=== PATIENT | male | born 1990 | race Caucasian/White ===

== ENCOUNTER 2019-12-02 18:05 | Outpatient (CLI) | payer SELFPAY ==
[2019-12-02 18:18] LABS: Basophils # 0.1 10^3/uL (0.0-0.1); Basophils % 0.9 %; Eosinophils % 0.5 %; Hemoglobin 14.6 g/dL (11.7-16.6); Lymphocytes # 3.1 10^3/uL (0.8-4.8); Lymphocytes % 40.3 %; Mean Corpuscular HGB Conc 33.2 g/dL (30.0-36.0); Mean Corpuscular Hemoglobin 32.2 pg (28.0-34.0); Mean Corpuscular Volume 96.9 fL (80-94); Mean Platelet Volume 10.5 fL (7.4-10.4); Monocytes # 0.4 10^3/uL (0.2-0.9); Monocytes % 5.5 %; Neutrophils # 4.1 10^3/uL (1.8-7.7); Neutrophils % 52.5 %; Nucleated Red Blood Cells % 0 %; Platelet Count 275 10^3/cmm (130-400); Red Blood Count 4.54 10^6/uL (4.1-5.3); Red Cell Distribution Width 11.8 % (12.1-15.1); White Blood Count 7.8 10^3/uL (4.0-10.0)
[2019-12-02 18:35] LABS: Alanine Aminotransferase 45 U/L (0-41); Albumin Level 4.9 g/dL (3.5-5.2); Alkaline Phosphatase 78 IU/L (40-130); Anion Gap 18.8 (5-19); Aspartate Amino Transferase 37 U/L (0-40); Blood Urea Nitrogen 10 mg/dL (6-20); Calcium 9.6 mg/dL (8.5-10.5); Carbon Dioxide 23 mmol/L (22-29); Chloride 99 mmol/L (98-107); Chol HDL Ratio 2.29 mg/dL (1.0-5.00); Cholesterol 142 mg/dL (0-200); Globulin 2.5 g/dL (1.3-4.6); Glomerular Filtration Rate 112.8 mL/min (90-130); Glucose 264 mg/dL (65-115); HDL Cholesterol 62 mg/dL (60-100); LDL Cholesterol Calculated 62 mg/dL (50-129); Osmolality Calculated 289 mOsm/kg (285-295); Potassium 3.8 mmol/L (3.5-5.1); Sodium 137 mmol/L (136-145); Total Bilirubin 0.4 mg/dL (0.15-1.2); Total Protein 7.4 g/dL (6.6-8.7); Triglycerides 91 mg/dL (0-150)
[2019-12-02 18:46] LABS: Estmated Average Glucose 223; Hemoglobin A1C 9.4 % (4.0-6.0)
== END 2019-12-02 18:06 | disposition home or self-care (01) ==
LOC: LAB 18:06
PROVIDERS: Family Provider Family Medicine; PCP Family Medicine; Visit Provider General Practice
DX: E11.9 Type 2 diabetes mellitus without complications (principal)
CPT/HCPCS: 80053; 80061; 83036; 85025

== ENCOUNTER → 2022-05-29 11:15 | Outpatient (BNVA) | payer BC, MEDICAID, SELFPAY | PROVIDERS: Family Provider Family Medicine; PCP Nurse Practitioner; Visit Provider Internal Medicine | DX: E10.42 Type 1 diabetes mellitus with diabetic polyneuropathy (principal); E78.2 Mixed hyperlipidemia | CPT/HCPCS: 80053; 80061; 82044; 83036 ==

== ENCOUNTER → 2022-08-26 14:35 | Outpatient (BNVA) | payer BC, MEDICAID, SELFPAY | PROVIDERS: Family Provider Family Medicine; PCP Nurse Practitioner; Visit Provider Student in an Organized Health Care Education/Training Program | DX: M65.321 Trigger finger, right index finger (principal); M65.331 Trigger finger, right middle finger | CPT/HCPCS: 73130 ==

== ENCOUNTER 2022-09-17 05:23 | Day surgery (SDC) | payer BC, MEDICAID, SELFPAY ==
[2022-09-16 11:22] VITALS: BMI 23.6
[2022-09-17] VITALS (8 sets, daily range): BP systolic 100–117; BP diastolic 56–74; PULSE 61–73; RESP 12–18; TEMP 36.1–36.4; O2SAT 97–99
[2022-09-17 06:06] LABS: Glucose Point of Care 174 mg/dL (70-110)
[2022-09-17] MEDS: ketorolac 30 mg/mL INJ IVP (06:06)
[2022-09-17] MEDS: acetaminophen 1,000 MG/100 ML PIGGYBACK 400 MG IV (06:06)
[2022-09-17] MEDS: sodium chloride 0.9% 1,000 ML 30 ML IV (06:07)
--- NOTE | 2022-09-17 06:36 | ANES.PREANE2 ---
Pre-Anesthetic Assessment Height/Weight: Height 1.73 m Weight 70.307 kg Temp Pulse Resp BP Pulse Ox O2 Del Method 97.6 F 69 18 117/74 98 09/17/22 05:56 09/17/22 05:56 09/17/22 05:56 09/17/22 05:56 09/17/22 05:56 09/17/22 05:58 Preop Diagnosis: Right index finger trigger, right middle finger trigger Operation Date: 09/17/22 07:00 Proposed Procedures p right index and middle trigger finger release 85513, M65.321,? M65.331(Right) - Kike Nance, Familial anesthetic complications: None Was Beta Lexii taken within 24 hours: N/A Was Clonidine taken within 24 hours: N/A Last intake: Intake Last Liquid Date 09/16/22 Last Liquid Time 23:00 Last Solid Date 09/16/22 Last Solid Time 19:00 Social Alcohol (1 pint whiskey a day) and Tobacco 1 and medical marijuana pack(s) per day 10 pack years Exam alert, oriented x 3, clear to auscultation bilaterally and regular rate & rhythm Airway Submandibular: within normal limits Cervical ROM: within normal limits Mallampati: Class II Dentition: chipped and loose Comments: Comments: Poor dentition History/ROS No significant history except as noted and No significant complaints Pulmonary Insomnia CV/HEM None reported None reported Hepatic None reported GI Gastroesophageal Reflux Disease (None this morning) Metabolic Diabetes Mellitus and Hyperlipidemia [facility] [place] None reported Neuropsych Anxiety, Depression and Neuropathy Anesthetic Plan ASA status: 2 Anesthesia: Anesthesia Evaluation and MAC Risk of > 500 ml blood loss (7ml/kg in children): No Medications/Allergies Home Medications Medication Instructions Recorded Confirmed Last Taken Type blood sugar diagnostic (True 05/09/22 09/10/22 Unknown History Metrix Glucose Test Strip) insulin detemir U-100 100 unit/mL 30 unit SUBCUT DAILY 05/09/22 09/17/22 09/16/22 History (3 mL) subcutaneous pen (Levemir FlexTouch U-100 Insulin) blood-glucose meter,continuous #1 ea 05/23/22 09/10/22 Unknown Rx (Dexcom G6 Senior Dynamics Crm Developer) insulin aspart U-100 100 unit/mL 10 unit (0.1 mL) SUBCUT TID #15 mL 05/23/22 09/17/2209/16/23 Rx (3 mL) subcutaneous pen (Novolog FlexPen U-100 Insulin aspart) blood-glucose transmitter (Dexcom #1 ea 08/23/22 09/10/22 Unknown Rx G6 Transmitter device) blood-glucose sensor (Dexcom G6 #9 ea 09/10/22 09/10/22 Unknown Rx Sensor device) rosuvastatin 20 mg tablet 20 mg PO DAILY #30 tabs 09/10/22 09/17/22 09/16/22 Rx Allergies Allergy/AdvReac Type Severity Reaction Status Date / Time No Known Allergies Allergy Verified 09/16/22 11:21 Current Medications Generic Name Dose Route Start Last Admin Trade Name Freq PRN Reason Stop Dose Admin Sodium Chloride 1,000 mls @ 30 mls/hr 09/17/22 05:45 09/17/22 06:07 Sodium Chloride 0.9% IV 09/18/22 05:44 30 mls/hr .Q24H VENTURA Administration PFSH Anesthesia Medical History Marijuana use Polyneuropathy due to type 1 diabetes mellitus Type 1 diabetes mellitus Family History Other Hypertension Social History Additional social history: marijuana use Data Anesthesia Cardiac Studies: No Data to Display
--- NOTE | 2022-09-17 06:53 | W.PM.OPSUD ---
Surgery/Procedure H&P Update DATE OF PROCEDURE: September 17, 2022 DATE H&P PERFORMED: 08/26/22 CHANGES TO PREVIOUS DOCUMENTATION: None PREOP DIAGNOSIS: Right index finger trigger, right middle finger trigger PRIMARY INDICATION FOR PROCEDURE: Right index finger trigger, right middle finger trigger PLANNED PROCEDURE: Operation Date: 09/17/22 07:00 Proposed Procedures p right index and middle trigger finger release 08350, M65.321,? M65.331(Right) - Kike George, DO
[2022-09-17] MEDS: ceFAZolin 2,000 MG in sodium chloride 0.9% (plus) 50 ML 100 MG IV (06:56)
--- NOTE | 2022-09-17 07:43 | PM.OP2 ---
Brief Operative Note Date of procedure: 09/17/22 Pre-op diagnosis: Right middle finger trigger, right index finger trigger Post-op diagnosis: same Procedure Done: Right middle finger trigger release Right index finger trigger release Surgeon: Kike George Estimated blood loss (mL): 4 Complications: None Post-op Plan: Patient taken to PACU in stable condition recovering well. Given appropriate discharge structure as well as pain medication postoperatively we will follow-up with us in the orthopedic office in 2 weeks. Patient understands agrees with current plan. All questions answered. Condition: stable Disposition: same day Coding Level of Care Code Acute Code for Lorraineg Dhruv
--- NOTE | 2022-09-17 07:44 | PM.PACU ---
PACU note Narrative: Patient taken to PACU in stable condition recovering well patient received local anesthetic to the index and middle finger still has decreased sensation. Patient is able to wiggle fingers without any issues no mechanical triggering. Fingertips warm well-perfused brisk capillary refill less than 2 seconds. Exam: awake Disposition: discharged
--- NOTE | 2022-09-17 07:44 | PM.OP ---
Operative Report Date of procedure: September 17, 2022 Pre-op diagnosis: Preop Diagnosis Right index finger trigger, right middle finger trigger Post-op diagnosis: Same Procedure done: Right index finger trigger release Right middle finger trigger release Surgeon: Kike George DO Anesthesia: MAC (Local) Estimated blood loss: For mL 9 minutes IV fluids: See anesthesia record Complications: None Findings: See operative report narrative Condition: stable Disposition: same day Brief History: Patient is a 32-year-old male who has right index finger and right middle finger trigger findings consistent with preoperative diagnosis. We talked about treatment options and outpatient setting nonoperative and operative invention. At this point time through shared decision making elected to proceed with right middle finger and right index finger trigger release. He understands risk benefits complication alternatives surgical treatment options. Understanding risk of surgery he agrees to proceed with surgical intervention. All questions answered. Procedure: Patient seen evaluated in the preoperative holding area. Consent was reviewed and signed with patient. Correct extremity and digits were marked. Patient was then seen eval by anesthesia department once cleared for surgery taken back to the operative suite. He was placed in supine position all bony prominences well-padded patient was properly secured to the bed. Armboard applied to the right upper extremity. Nonsterile tourniquet applied to the right upper arm. Patient then underwent anesthesia per the anesthesia department. Patient's right upper extremity was then prepped and draped in standard orthopedic fashion. Final timeout performed. Patient received appropriate preoperative antibiotics. Local anesthetic was then injected under sterile aseptic technique and flexor tendon sheath digital block of the index and middle finger. Once appropriately anesthetized Esmarch tourniquet was used to exsanguinate the right upper extremity and tourniquet was insufflated 250 mmHg. Standard oblique incisions were made over the index and middle finger first my attention was turned towards the middle finger the oblique incision followed the distal palmar crease. Sharp scalpel incision was made only through skin. I then switched to Littler dissection scissors spreading longitudinally in the planes of the neurovascular bundles on both the radial and ulnar sides. I then utilized Kasdan retractors to protect the neurovascular bundles and then identified the flexor tendon and the A1 heber. I then identified the most proximal portion of the A1 heber and utilize dissection scissors to release the A1 heber to its entirety distally with care to protect neurovascular bundles throughout the procedure. I then utilized a rag nail retractor to pull the tendons out of the incision no triggering was noted and the tendons appeared healthy with no evidence of tearing. Next this was then thoroughly irrigated and a wet Ray-Belkis was then applied then attention was turned towards the right index finger. I then dissected through the standard oblique incision with Littler dissection scissors care to spread longitudinally along the planes of the neurovascular bundle and directly in plane of the flexor tendon sheath. Once down the flexor tendon sheath I utilized Kasdan retractors to protect the neurovascular bundles both radially and ulnarly. Once fully protected I then visualized the A1 heber and utilized dissection scissors identified the proximal portion of the A1 heber and then under direct visualization with loupe magnification released the A1 heber up to the A2 heber. I then pulled the tendons out with a rag nail which tendons were healthy and there was no recurrence and triggering. I took the patient's fingers through range of motion no triggering was noted. Then thoroughly irrigated the incision site Patient was then awakened from anesthesia for a trial of making a fist to assess for any triggering. When asked to make a fist and extend he had no evidence of mechanical triggering and patient confirmed there was no residual triggering left and the right index and right middle finger. He had full range of motion and function. Tourniquet deflated hemostasis satisfactory with electrocautery. The wounds were then thoroughly irrigated. Patient's incisions were then closed with interrupted nylon suture. Incisions were then dressed with Xeroform 4 x 4's fluffs and Kerlix and an Jeremías wrap. Patient then awakened from anesthesia and taken back in stable condition Disposition: Patient taken PACU in stable condition recovering well dressings on in place clean dry and intact. We will see appropriate discharge instruction as well as pain medication postoperatively. We will follow-up with me in the office in 2 weeks. Understand that any questions or concerns and contact the office
--- NOTE | 2022-09-17 16:22 | ANE.PACU2 ---
Inpatient post-anesthesia follow up: Airway intact: Yes Vital signs: Temperature 97.1 F Pulse Rate 62 Respiratory Rate 18 Blood Pressure 101/61 Pulse Oximetry 98 Oxygen Delivery Me thod Room Air Oxygen Flow Rate Fraction of Inspir ed Oxygen Hydration adequate: Yes Nausea and vomiting: No Pain level: 2 Mental status: Baseline
== END 2022-09-17 08:52 | disposition home or self-care (01) ==
PROVIDERS: PCP Nurse Practitioner; Visit Provider Student in an Organized Health Care Education/Training Program
PROC: (CPT 26055; principal; 2022-09-17 07:00)
DX: M65.321 Trigger finger, right index finger (principal); M65.331 Trigger finger, right middle finger; K21.9 Gastro-esophageal reflux disease without esophagitis; E78.5 Hyperlipidemia, unspecified; F41.9 Anxiety disorder, unspecified; F32.A Depression, unspecified; E10.40 Type 1 diabetes mellitus with diabetic neuropathy, unspecified; Z79.4 Long term (current) use of insulin
CPT/HCPCS: 26055 ×2; 36416; 82962; J0131; J0690; J1885; J2250; J2405; J2704; J2795; J3010; J3490; J7030

== ENCOUNTER 2022-11-21 11:43 | Emergency (ER) | payer BC, MEDICAID, SELFPAY ==
[2022-11-21 11:59] VITALS: BMI 23.1
[2022-11-21 12:01] VITALS: BP 127/86; PULSE 79; RESP 18; TEMP 36.7; O2SAT 96
--- NOTE | 2022-11-21 12:08 | W.ED.SKABFB ---
HPI - Skin/Abscess/Foreign Bdy General: Chief complaint: Skin/Abscess/Foreign Body Stated complaint: Swollen Face and Dental Pain Time Seen by Provider: 11/21/22 12:08 History of Present Illness: Patient is a 32-year-old male who comes to the ED with dental pain. Patient saw his dentist yesterday and he was placed on clindamycin and told he has an abscessed tooth and is scheduled to have his tooth removed next week. This morning he woke up and he was having swelling to left side of mouth, left cheek and left periorbital region. Past medical history of type 1 diabetes. Associated symptoms: Deny chills, fever(s), nausea or vomiting Review of Systems Const: Denies: fever(s), chills or fatigue Eyes: Denies: change in vision or eye discomfort ENMT: Reports: dental pain; Denies: throat pain, odynophagia, nasal discharge or nasal congestion Card: Denies: chest pain, palpitations, edema, swelling of feet/ankles, dyspnea on exertion or orthopnea Resp: Denies: dyspnea, productive cough or non-productive cough GI: Denies: abdominal pain, nausea, vomiting, diarrhea, constipation or hematochezia : Denies: flank pain, difficulty urinating, dysuria or hematuria Musc: Denies: neck pain, back pain or extremity swelling Skin/Breast: Denies: rash or new lesions Neuro: Denies: headache(s), numbness in extremities or weakness in extremities PFS ED PFSH: Medical History Marijuana use Polyneuropathy due to type 1 diabetes mellitus Type 1 diabetes mellitus Family History Other Hypertension Social History Additional social history: marijuana use Physical Exam Const: COMMON NORMALS: patient oriented x3 HENMT: COMMON NORMALS: normocephalic HEAD & SCALP: normocephalic FACE & SINUS: edema on the left periorbital and maxilla MOUTH: Normal oral and palatal mucosa present TEETH & GINGIVA: Yes abnormal tooth and associated gingiva, Yes caries and Yes poor dentition THROAT: posterior oropharynx normal and uvula midline Neck/C-Spine: COMMON NORMALS: supple GENERAL: Yes normal visual inspection Resp: COMMON NORMALS: normal respiratory effort, No retractions, No use of accessory muscles and clear to auscultation bilaterally AUSCULTATION: clear to auscultation bilaterally Cardio: COMMON NORMALS: regular rate, regular rhythm, S1 normal heart sound present, S2 normal heart sound present, No gallops present (Cardio), No clicks present (Cardio), No murmurs present (Cardio) and Peripheral pulses 2+ throughout RATE: regular rate RHYTHM: regular rhythm HEART SOUNDS: S1 normal heart sound present and S2 normal heart sound present PERIPHERAL PULSES: Peripheral pulses 2+ throughout GI: COMMON NORMALS: Normal to inspection, nondistended, normoactive bowel sounds present, Soft to palpation, non-tender and no masses PALPATION: Yes Soft to palpation : COMMON NORMALS: Yes no CVA tenderness BLADDER/KIDNEY EXAM: Yes no CVA tenderness Back/Pelvis: COMMON NORMALS: no CVA tenderness Extremity: COMMON NORMALS: normal to inspection Neuro: COMMON NORMALS: patient oriented x3 GAIT: Yes Normal gait present Skin: GENERAL SKIN EXAM: dry skin Course Vital Signs: Vital signs: Vital Signs Temperature 98.0 F 11/21/22 12:01 Pulse Rate 79 11/21/22 12:01 Respiratory Rate 18 11/21/22 12:01 Blood Pressure 127/86 11/21/22 12:01 Pulse Oximetry 96 11/21/22 12:01 Oxygen Delivery Me thod Room Air 11/21/22 12:01 MDM - Skin/Abscess/Foreign Bdy Medicial Decision Making Patient is a 32-year-old male who comes to the ED with dental pain. Patient saw his dentist yesterday and he was placed on clindamycin and told he has an abscessed tooth and is scheduled to have his tooth removed next week. This morning he woke up and he was having swelling to left side of mouth, left cheek and left periorbital region. Past medical history of type 1 diabetes. Vitals are stable. Patient appears nontoxic in no acute distress. He has poor dentition and left maxilla and left periorbital edema. Patient was diagnosed with dental abscess and he was given a shot of Rocephin and pain med here in the ED. He was stable for discharge home and sent home with a prescription for ibuprofen 800 mg and told to continue taking his previously prescribed antibiotic. Follow-up with dentist at his scheduled appointment next week. Patient understood and agreed with plan. Discharge Plan Discharge Patient Disposition: Home Clinical Impression: Dental abscess Condition: Stable Prescriptions: New ibuprofen 800 mg tablet 800 mg PO Q8H PRN (Reason: pain) Qty: 20 0RF No Action Levemir FlexTouch U-100 Insuln 100 unit/mL (3 mL) insulin pen 30 unit SUBCUT DAILY (DME) True Metrix Glucose Test Strip Strip See Rx Instructions .Route Rx Instructions: As directed (DME) Dexcom G6 Technical Specialist Cytogenetics Misc See Rx Instructions .Route Qty: 1 0RF Rx Instructions: As directed insulin aspart U-100 [Novolog FlexPen U-100 Insulin] 100 unit/mL (3 mL) insulin pen 10 unit SUBCUT TID Qty: 15 3RF (DME) Dexcom G6 Sensor Device See Rx Instructions .Route Qty: 9 3RF Rx Instructions: As directed rosuvastatin 20 mg tablet 20 mg PO DAILY Qty: 30 2RF Rx Instructions: 1 tablet daily (DME) Dexcom G6 Transmitter Device See Rx Instructions .Route Qty: 1 3RF Rx Instructions: As directed Discharge Orders: Discharge ED (Routine); Ordered 11/21/22 Ordered By: Maurizio George Referrals: Morris Bentley FNP [Primary Care Provider] - Discharge Diet: Regular Discharge Activity: Resume usual activity Patient Instructions: Dental Abscess (ED) Activity Restrictions/Additional Instructions: Follow-up with dentist at your scheduled appointment next week. Take medications as prescribed. Return to the ER or your medical provider if condition worsens. Please read and understand discharge instructions. Thank you for choosing [facility] for your healthcare needs today. Please realize this is an emergency room and that we are providing you with a medical screening exam and this may not be complete and all inclusive of all the testing and or work up that you may need to determine your ailment or severity of your illness. It is very important that you follow up as instructed or that you return to the Emergency Department should you have concerns or if your condition changes or worsens in any way. Coding Level of Care Code ED Furnace Process Plant Operator for Miya Bartlett
[2022-11-21] MEDS: cefTRIAXone 1,000 MG in water for injection-sterile 2.1 ML 2.1 MG IM (12:39)
[2022-11-21] MEDS: HYDROcodone-acetaminophen 7.5-325 mg Tablet 1 TAB PO (12:40)
== END 2022-11-21 12:57 | disposition home or self-care (01) ==
PROVIDERS: Emergency Provider Physician Assistant; PCP Nurse Practitioner
DX: K04.7 Periapical abscess without sinus (principal); Z79.4 Long term (current) use of insulin; E10.9 Type 1 diabetes mellitus without complications
CPT/HCPCS: 96372; 99284; J0696

== ENCOUNTER → 2023-07-01 11:17 | Outpatient (BNVA) | payer BC, MEDICAID, SELFPAY | PROVIDERS: PCP Nurse Practitioner; Visit Provider Internal Medicine | DX: E78.2 Mixed hyperlipidemia (principal); E10.42 Type 1 diabetes mellitus with diabetic polyneuropathy | CPT/HCPCS: 36415; 80053; 80061; 82044; 83036 ==

== ENCOUNTER → 2023-09-19 10:23 | Outpatient (BNVA) | payer BC, MEDICAID, SELFPAY | PROVIDERS: PCP Nurse Practitioner; Visit Provider Physician Assistant | DX: M79.642 Pain in left hand (principal); M65.322 Trigger finger, left index finger | CPT/HCPCS: 73130 ==

== ENCOUNTER 2023-10-29 09:07 | Day surgery (SDC) | payer BC, MEDICAID, SELFPAY ==
[2023-10-29 09:19] VITALS: BP 129/76; PULSE 73; RESP 16; TEMP 36.3; O2SAT 98
[2023-10-29] MEDS: sodium chloride 0.9% 1,000 ML 30 ML IV (09:27)
[2023-10-29] MEDS: acetaminophen 1,000 MG/100 ML PIGGYBACK 400 MG IV (09:32)
[2023-10-29] MEDS: ketorolac 30 mg/mL INJ IVP (09:37)
[2023-10-29] MEDS: scopolamine 1.5 Patch 1 PATCH TRANSDERMA (09:37)
--- NOTE | 2023-10-29 09:38 | P.ANESASSM_ITS ---
Pre-Anesthetic Assessment Height/Weight: Height 1.73 m Weight 68.492 kg Temp Pulse Resp BP Pulse Ox O2 Del Method 97.4 F L 73 16 129/76 98 Room Air 10/29/23 09:19 10/29/23 09:19 10/29/23 09:19 10/29/23 09:19 10/29/23 09:19 10/29/23 09:19 Operation Date: 10/29/23 10:30 Proposed Procedures p Trigger Finger Release/ Left index finger(Left) - Kike Mackinac, DO Familial anesthetic complications: None Was Beta Lexii taken within 24 hours: N/A Was Clonidine taken within 24 hours: N/A Last intake: Intake Last Liquid Date 10/28/23 Last Liquid Time 00:00 Last Solid Date 10/28/23 Last Solid Time 20:00 Social Alcohol (heavy use) and Tobacco Marijuana use Exam alert, oriented x 3, clear to auscultation bilaterally and regular rate & rhythm Airway Mallampati: Class II Dentition: chipped, loose and other (poor dentition) CV/HEM Hypertension Metabolic Diabetes Mellitus Anesthetic Plan ASA status: 3 Anesthesia: MAC Risk of > 500 ml blood loss (7ml/kg in children): No Medications/Allergies Home Medications Medication Instructions Recorded Confirmed Last Taken Type blood sugar diagnostic (True 05/09/22 10/02/23 Unknown History Metrix Glucose Test Strip) blood-glucose meter,continuous #1 ea 05/23/22 10/02/23 Unknown Rx (Dexcom G6 Senior Qa Automation Engineer) ibuprofen 800 mg tablet 800 mg PO Q8H PRN pain #20 tabs 11/21/22 10/29/23 10/28/23 Rx blood-glucose sensor (Dexcom G6 #9 ea 04/18/23 10/02/23 Unknown Rx Sensor device) blood-glucose transmitter (Dexcom #1 ea 04/18/23 10/02/23 Unknown Rx G6 Transmitter device) pen needle, diabetic 31 gauge x #1,200 ea 07/01/23 10/02/23 Unknown History 11/05 (TechLITE Pen Needle) rosuvastatin 20 mg tablet 20 mg PO DAILY #30 tabs 07/01/23 10/29/23 10/27/23 Rx pen needle, diabetic 32 gauge x #100 ea 07/17/23 10/02/23 Unknown Rx (TechLITE Pen Needle) insulin aspart U-100 100 unit/mL 10 unit (0.1 mL) SUBCUT TID 60 09/29/23 10/29/23 10/28/23 Rx (3 mL) subcutaneous pen (Novolog days #30 mL FlexPen U-100 Insulin aspart) insulin detemir U-100 100 unit/mL 30 unit (0.3 mL) SUBCUT DAILY 60 09/29/23 10/28/23 10/28/23 Rx (3 mL) subcutaneous pen days #20 mL Allergies Allergy/AdvReac Type Severity Reaction Status Date / Time No Known Allergies Allergy Verified 10/28/23 13:25 [facility] Anesthesia Medical History Polyneuropathy due to type 1 diabetes mellitus Marijuana use Type 1 diabetes mellitus Family History Other Hypertension Social History Additional social history: marijuana use Data Anesthesia Cardiac Studies: No Data to Display
--- NOTE | 2023-10-29 09:54 | P.HP_ITS ---
Same Day Surgery H&P Indication for Procedure/HPI DATE OF PROCEDURE: October 29, 2023 CHIEF COMPLAINT/INDICATIONFOR SURGICAL PROCEDURE: Left index finger trigger PREOP DIAGNOSIS: Left index finger trigger PLANNED PROCEDURE: Operation Date: 10/29/23 10:30 Proposed Procedures p Trigger Finger Release/ Left index finger(Left) - Kike George DO Medications/Allergies* Home Medications Medication Instructions Recorded Confirmed Type blood sugar diagnostic (True 05/09/22 10/02/23 History Metrix Glucose Test Strip) pen needle, diabetic 31 gauge x #1,200 ea 07/01/23 10/02/23 History 5/16 (TechLITE Pen Needle) Allergies/Adverse Reactions 3 Allergy/AdvReac Type Severity Reaction Status Date / Time No Known Allergies Allergy Verified 10/28/23 13:25 Current Medications: Generic Name Dose Route Start Last Admin Trade Name Freq PRN Reason Stop Dose Admin Sodium Chloride 1,000 mls @ 30 mls/hr 10/29/23 09:15 10/29/23 09:27 Sodium Chloride 0.9% IV 10/30/23 09:14 30 mls/hr .Q24H VENTURA Administration Pertinent History/Comorbid Conditions* Medical History (Updated 09/19/23 @ 11:45 by DUY Agudelo) Polyneuropathy due to type 1 diabetes mellitus Marijuana use Type 1 diabetes mellitus Family History (Updated 05/14/22 @ 13:46 by Ceci Freeman MD) Hypertension Social History Additional social history: marijuana use Pertinent Exam Findings alert, oriented x 3, operative site marked and procedure specific exam findings Patient has tenderness to palpation over the left hand A1 heber. Refer to full office note in detail orthopedic examination on 09/19/2023: Left hand?index finger?limited range of motion due to pain. Severe tenderness at A1 heber. Mechanical locking and catching with flexion of index finger. Fingers are warm well-perfused. Sensation hand intact Recommendations Surgery/Procedure today Other Plans: Plan to proceed to the OR today for left index finger trigger release. He understands the ins and outs procedure risk benefits complication alternatives surgery through shared decision make elects proceed with surgical intervention. All questions answered at this time. Coding Level of Care Code Acute Code for Chg Fwd
[2023-10-29] MEDS: ceFAZolin 2,000 MG in sodium chloride 0.9% (plus) 50 ML 100 MG IV (10:02)
[2023-10-29] MEDS: BUPivacaine 0.25% INJ 30 mL INJECTION (10:10)
[2023-10-29] MEDS: ROPivacaine 0.5% SDV 30 mL 150 MG INJECTION (10:10)
[2023-10-29 10:23] LABS: Glucose Point of Care 190 mg/dL (70-110)
--- NOTE | 2023-10-29 10:38 | P.OP_ITS ---
Operative Report Date of procedure: October 29, 2023 Surgeon: Kike George DO Modern Languages Professor: Maurizio George PA-C: PA was necessary for assistance in this case with hand positioning to execute the procedure, retraction and protection of neurovascular structures as well as to assist with wound closure and dressing application. Procedure: Preoperative diagnosis: Left index finger trigger post-op diagnosis: Same Procedure done: Left Index finger?trigger?release Surgeon: Kike George DO Estimated blood loss: 2cc Tourniquet time 5mins Complications: None Condition: stable Disposition: same day Brief History: Patient's been seen and worked up in the outpatient setting and findings consistent with preoperative diagnosis of Left Index finger?trigger.? He is fail ed conservative treatment and would like to proceed with surgical intervention as she has had success with this in the past. We talked about treatment options nonoperative versus operative intervention.? ?Patient understands the risk benefits complication alternatives of surgical nonsurgical treatment options.? Understanding his risks with surgery he elects proceed with surgical intervention.? Consent obtained in the office.? Here today to proceed with surgical intervention.? All questions answered. Procedure: Patient was seen and evaluated in the preoperative holding area.? Consent was reviewed and signed with patient.? Seen evaluated by Anesthesia Department.? Once cleared for surgery was brought back to the operative suite.? Placed in supine position on the OR table all bony prominences well-padded patient properly secured to the bed.? Patient's Left arm was then placed to the armboard.? A nonsterile tourniquet applied to the Left upper arm.? Patient's Left upper extremity was then prepped and draped in standard orthopedic fashion.? Final timeout performed.? Patient received appropriate preoperative antibiotics. Esmarch tourniquet was used exsanguinate the Left upper extremity tourniquet insufflated to 250 mmHg. Under sterile aseptic technique local digital block was performed to the Left Index finger.? Once appropriately anesthetized a standard oblique incision was made centering over the A1 heber following patient's flexor crease.? Sharp scalpel incision was made only through skin and then switched to Littler dissection scissors and spread longitudinally directly over the flexor tendon sheath.? I then mobilized both radially and ulnarly and Kasdan retractors were used and placed by my assistant operations manager to protect neurovascular bundle.? Next I visualized the A1 heber and this was incised with a scalpel.? I then switched to dissection scissors and?released the A1 heber both proximally as well as distally to its entirety.? Significant tendon sheath fluid was noted consistent with inflammation.? Mild fraying/irritation of the flexor tendons noted but no tear.? At this point I utilized a rag nail and pulled the tendons FDS and FDP out of the incision and no?triggering was noted.? I then had anesthesia wake up the patient and patient was able to actively flex and extend with no?triggering.? This point thorough irrigation was performed.? Tourniquet deflat ed hemostasis satisfactory with bipolar.? I then subsequently closed the incision with interrupted nylon suture.? Xeroform 4 x 4's, Kerlix and an Jeremías wrap was applied for a bulky soft dressing.? Patient was then subsequently awakened from anesthesia and taken to PACU in stable condition tolerated procedure without issues. Disposition: Patient taken back in stable condition recovering well.? Patient will receive appropriate discharge instruction as well as pain medication postoperatively.? Patient to follow-up with me in the office in 2 weeks for repeat evaluation and incision check.? Patient understands that any questions or concerns and contact the office.? All questions answered.
--- NOTE | 2023-10-29 10:43 | W.PM.BPON ---
Date of Procedure: [10/29/2023] Surgeon: [Dr. George DO] Box Lining Machine Feeder(s): [Maurizio George PA-C] Procedure(s) performed: [Left Index finger?trigger?release] Findings of the procedure(s): [Left index trigger finger] Estimated blood loss: [2 mL] Specimen(s) removed: [N/A] Post-operative diagnosis: [Left index trigger finger]
[2023-10-29 10:44] VITALS: BP 103/57; PULSE 75; RESP 18; TEMP 36.1; O2SAT 97
--- NOTE | 2023-10-29 10:46 | PM.PACU ---
PACU note Narrative: Patient is a 33-year-old male just underwent a left index finger trigger release. Patient transferred to PACU in stable condition. Pain is well controlled. Dressing on hand is dry and in place. Patient's fingers are warm and well-perfused. Patient can wiggle fingers. normal cap refill under 2 seconds. Patient has normal elbow range of motion. Sensation to hand intact Exam: awake Disposition: discharged
[2023-10-29 10:49] VITALS: BP 101/76; PULSE 83; RESP 18; O2SAT 98
[2023-10-29 10:54] VITALS: BP 101/65; PULSE 73; RESP 18; TEMP 36.2; O2SAT 98
[2023-10-29 10:59] VITALS: BP 106/66; PULSE 70; RESP 18; TEMP 36.2; O2SAT 98
[2023-10-29 11:14] VITALS: BP 108/62; PULSE 54; RESP 18; O2SAT 99
--- NOTE | 2023-10-29 11:30 | ANE.PACU2 ---
Inpatient post-anesthesia follow up: Airway intact: Yes Vital signs: Temperature 97.1 F Pulse Rate 54 Respiratory Rate 18 Blood Pressure 108/62 Pulse Oximetry 99 Oxygen Delivery Me thod Room Air Oxygen Flow Rate Fraction of Inspir ed Oxygen Hydration adequate: Yes Nausea and vomiting: No Pain level: 1 Mental status: Baseline
== END 2023-10-29 11:30 | disposition home or self-care (01) ==
PROVIDERS: PCP Nurse Practitioner; Visit Provider Student in an Organized Health Care Education/Training Program
PROC: (CPT 26055; principal; 2023-10-29 10:20)
DX: M65.322 Trigger finger, left index finger (principal)
CPT/HCPCS: 26055; 36416; 82962; J0131; J0690; J1885; J2704; J2795; J3010; J3490; J7030

== ENCOUNTER 2024-02-18 20:49 | Emergency (ER) | payer BC, MEDICAID, SELFPAY ==
[2024-02-18 21:15] VITALS: BP 132/71; PULSE 122; RESP 18; TEMP 36.7; O2SAT 96; BMI 23.6
--- NOTE | 2024-02-18 21:22 | XRR_ITS ---
PROCEDURE INFORMATION: Exam: XR Left Tibia and Fibula Exam date and time: 02/18/2024 9:30 PM Age: 33 years old Clinical indication: Injury or trauma; Fall; Other: Pain; Additional info: Injury. Fell through couch today, L tib fib pain since w small anterior laceration TECHNIQUE: Imaging protocol: Radiologic exam of the left tibia and fibula. Views: 2 views. COMPARISON: US soft tissue/extremity [id number] 05/23/2017 12:58 PM FINDINGS: Bones/joints: Normal. Soft tissues: Normal. No visible laceration and no radiopaque foreign body XR/XR tibia fibula LT 2V [id number] IMPRESSION: No acute findings.
--- NOTE | 2024-02-18 21:47 | ED_ITS ---
HPI - Extremity Injury (Lower) 2 General: Chief Complaint: Extremity Injury, Lower Stated Complaint: cantu injury Time Seen by Provider: 02/18/24 21:14 Source: patient Mode of arrival: ambulatory Limitations: no limitations History of Present Illness: Patient is a 33-year-old male who presents to ED today with a complaint of an injury to his left cantu that he sustained just prior to arrival after he states he accidentally fell from a couch while moving. He is ambulatory here on the extremity with a mild limp. Abrasion sustained to the anterior aspect of the left cantu. He has no other injuries or complaints at this time. Tetanus is up-to-date. MD complaint: leg injury Onset (ago): hour(s) Place: home Severity: moderate Relieving factors: immobilization Exacerbating factors: weight bearing Context: fall and direct blow Associated symptoms: Reports no associated symptoms Other symptoms: none Related Data Home Medications Medication Instructions Recorded Confirmed blood sugar diagnostic (True 05/09/22 02/18/24 Metrix Glucose Test Strip) pen needle, diabetic 31 gauge x #1,200 ea 07/01/23 02/18/24 5/16 (TechLITE Pen Needle) Previous Rx's Medication Instructions Recorded blood-glucose meter,continuous #1 ea 05/23/22 (Dexcom G6 Dispensing Operator) blood-glucose sensor (Dexcom G6 #9 ea 04/18/23 Sensor device) blood-glucose transmitter (Dexcom #1 ea 04/18/23 G6 Transmitter device) rosuvastatin 20 mg tablet 20 mg PO DAILY #30 tabs 07/01/23 insulin aspart U-100 100 unit/mL 10 unit (0.1 mL) SUBCUT TID 60 09/29/23 (3 mL) subcutaneous pen (Novolog days #30 mL FlexPen U-100 Insulin aspart) pen needle, diabetic 32 gauge x #100 ea 01/05/24 5/32 (TechLITE Pen Needle) insulin detemir U-100 100 unit/mL 30 unit (0.3 mL) SUBCUT BID #60 mL 02/18/24 (3 mL) subcutaneous pen (Levemir FlexPen) Allergies Allergy/AdvReac Type Severity Reaction Status Date / Time No Known Allergies Allergy Verified 02/18/24 07:28 Review of Systems 2 Musc: Reports: extremity pain (L cantu) and extremity swelling (L cantu) Skin/Breast: Reports: other (abrasion L cantu) Neuro: Denies: numbness in extremities or sensory changes PFSH ED 2 PFSH: Medical History Polyneuropathy due to type 1 diabetes mellitus Marijuana use Type 1 diabetes mellitus Family History Other Hypertension Social History Smoking and tobacco/nicotine status: never used tobacco/nicotine Additional social history: marijuana use Physical Exam 2 Const: COMMON NORMALS: no acute distress, average body habitus, no limitations, healthy appearing and well nourished Extremity: GENERAL: Yes normal exam except as noted LEFT LOWER EXTREMITY: Y es lower leg (see below) Left lower leg: Yes neurovascular exam (normal) EXTREMITY IMAGE (FRONT): 1. abrasion/contusion mid L cantu Neuro: COMMON NORMALS: moves all extremities, no focal motor deficits, no sensory deficits noted and gait normal Skin: TRAUMA: abrasion Course 2 Vital Signs: Vital signs: Vital Signs Temperature 98.0 F 02/18/24 21:15 Pulse Rate 122 H 02/18/24 21:15 Respiratory Rate 18 02/18/24 21:15 Blood Pressure 132/71 02/18/24 21:15 Pulse Oximetry 96 02/18/24 21:15 Oxygen Delivery Me thod Room Air 02/18/24 21:15 MDM - Extremity Injury (Lower) Medical Decision Making Personal interpretation of XR is unremarkable. He will be allowed discharge. Conservative therapies discussed. Wound care/infection precautions given regarding the abrasion. Tetanus is up-to-date. XR interpretation done by ED provider, pending radiology final review ED provider radiology interpretation(s): XR interpretation done by ED provider, pending radiology final review ED provider radiology interpretation(s): XR of the left tib/fib reviewed showing no acute fractures Discharge Plan Discharge Patient Disposition: Home Clinical Impression: Contusion of left tibia Condition: Stable Prescriptions: No Action Levemir FlexPen 100 unit/mL (3 mL) insulin pen 30 unit SUBCUT BID Qty: 60 1RF (DME) True Metrix Glucose Test Strip Strip See Rx Instructions .Route Rx Instructions: As directed (DME) Dexcom G6 Dispensing Operator Misc See Rx Instructions .Route Qty: 1 0RF Rx Instructions: As directed (DME) pen needle, diabetic [TechLITE Pen Needle] 31 gauge x 5/16 needle See Rx Instructions .ROUTE .MEDSUPPLY Qty: 1200 Rx Instructions: As directed rosuvastatin 20 mg tablet 20 mg PO DAILY Qty: 30 2RF Rx Instructions: 1 tablet daily (DME) Dexcom G6 Transmitter Device See Rx Instructions .Route Qty: 1 3RF Rx Instructions: As directed (DME) Dexcom G6 Sensor Device See Rx Instructions .Route Qty: 9 0RF Rx Instructions: As directed insulin aspart U-100 [Novolog FlexPen U-100 Insulin] 100 unit/mL (3 mL) insulin pen 10 unit SUBCUT TID MDD 30 60 Days Qty: 30 0RF (DME) pen needle, diabetic [TechLITE Pen Needle] 32 gauge x 5/32 needle See Rx Instructions .ROUTE .COMPLEX Qty: 100 3RF Dose Instruction: USE DIRECTED Rx Instructions: USE DIRECTED Discharge Orders: Discharge ED (Routine); Ordered 02/18/24 Ordered By: Tenisha Florian Referrals: Morris Bentley FNP [Primary Care Provider] - Patient Instructions: Contusion Coding Level of Care Code ED Furnace And Wash Equipment Operator for Miya Bartlett
== END 2024-02-18 22:01 | disposition home or self-care (01) ==
PROVIDERS: Emergency Provider Physician Assistant; PCP Nurse Practitioner
DX: S80.12XA Contusion of left lower leg, initial encounter (principal); Z79.4 Long term (current) use of insulin; E10.9 Type 1 diabetes mellitus without complications; W08.XXXA Fall from other furniture, initial encounter
CPT/HCPCS: 36415; 73590; 80053; 80061; 82044; 83036; 99283

== ENCOUNTER 2024-05-12 11:55 | Inpatient (IN) | payer BC, MEDICAID, SELFPAY ==
[2024-05-12] VITALS (17 sets, daily range): BP systolic 101–157; BP diastolic 58–100; PULSE 61–121; RESP 13–22; TEMP 36.5–36.9; O2SAT 97–100; BMI 25.4
--- NOTE | 2024-05-12 12:07 | W.ED.NAVMDI ---
HPI - Nausea/Vomiting/Diarrhea General: Chief complaint: Nausea/Vomiting/Diarrhea Stated complaint: HIGH SUGAR Time Seen by Provider: 05/12/24 11:56 Source: patient Mode of arrival: ambulatory Limitations: no limitations History of Present Illness: 34-year-old male is a type I diabetic states has had nausea vomiting last 2 days. States he not been able tolerate any p.o. and he is concerned he is going in DKA states his blood sugars running in the 300s today states he had some coffee-ground emesis as well. Denies any blood in the stools denies any fever. Associated nausea: Yes Associated symtoms: Reports nausea; Denies chest pain, dysuria or headache(s) Related Data Home Medications Medication Instructions Recorded Confirmed blood sugar diagnostic (True 05/09/22 05/12/24 Metrix Glucose Test Strip) pen needle, diabetic 31 gauge x #1,200 ea 07/01/23 05/12/24 5/16 (TechLITE Pen Needle) insulin glargine 100 unit/mL (3 30 unit SUBCUT BID 05/12/24 05/12/24 mL) subcutaneous pen Previous Rx's Medication Instructions Recorded blood-glucose meter,continuous #1 ea 05/23/22 (Dexcom G6 Business Broker) insulin aspart U-100 100 unit/mL 10 unit (0.1 mL) SUBCUT TID 60 09/29/23 (3 mL) subcutaneous pen (Novolog days #30 mL FlexPen U-100 Insulin aspart) pen needle, diabetic 32 gauge x #100 ea 01/05/2432 (TechLITE Pen Needle) blood-glucose transmitter (Dexcom #1 ea 03/15/24 G6 Transmitter device) blood-glucose sensor (Dexcom G6 #9 ea 05/03/24 Sensor device) Allergies Allergy/AdvReac Type Severity Reaction Status Date / Time No Known Allergies Allergy Verified 02/18/24 07:28 Review of Systems Const: Denies: fever(s), chills, body aches or change in appetite ENMT: Denies: throat pain or dental pain Card: Denies: chest pain Resp: Denies: dyspnea GI: Reports: abdominal pain, nausea and vomiting; Denies: diarrhea : Denies: dysuria Musc: Denies: neck pain or back pain Skin/Breast: Denies: rash Neuro: Denies: headache(s) PFSH ED PFSH: Medical History Polyneuropathy due to type 1 diabetes mellitus Marijuana use Type 1 diabetes mellitus Family History Other Hypertension Social History Smoking and tobacco/nicotine status: never used tobacco/nicotine Additional social history: marijuana use Physical Exam Const: COMMON NORMALS: patient oriented x3 HENMT: COMMON NORMALS: normocephalic and atraumatic HEAD & SCALP: normocephalic and atraumatic Eye: COMMON NORMALS: Equal, round and reactive pupils present and EOMs intact bilaterally PUPIL: Yes Equal, round and reactive pupils present Neck/C-Spine: COMMON NORMALS: full ROM and supple Chest: COMMONS NORMALS: normal inspection of the chest Resp: COMMON NORMALS: normal respiratory effort, No retractions, No use of accessory muscles and clear to auscultation bilaterally AUSCULTATION: clear to auscultation bilaterally Cardio: COMMON NORMALS: regular rhythm and No murmurs present (Cardio) RATE: tachycardic RHYTHM: regular rhythm GI: COMMON NORMALS: Normal to inspection, nondistended, normoactive bowel sounds present, Soft to palpation, non-tender and no masses PALPATION: Yes Soft to palpation Extremity: COMMON NORMALS: normal to inspection and full ROM Neuro: COMMON NORMALS: patient oriented x3, moves all extremities and no focal motor deficits Psych: COMMON NORMALS: mental status grossly normal, Normal thought process present and cooperative THOUGHT PROCESS: Normal thought process present Skin: COMMON NORMALS: no rashes or lesions noted and no wounds GENERAL SKIN EXAM: no rashes or lesions noted Course Vital Signs: Vital signs: Vital Signs Pulse Rate 74 05/12/24 13:03 Respiratory Rate 20 H 05/12/24 11:56 Blood Pressure 118/80 05/12/24 13:03 Pulse Oximetry 99 05/12/24 13:03 Oxygen Delivery Me thod Room Air 05/12/24 13:03 MDM - Nausea/Vomiting/Diarrhea Medical Decision Making Patient presents here with vomiting he is a type I diabetic he does have an anion gap but his pH is normal no ketones no signs of actual DKA likely anion gap from being dehydrated he feels improved after IV fluids will admit for observation at this time and continue fluids he has had no more vomiting here Medical Records I reviewed the patient's medical records. Lab Data I reviewed the patient's lab results. 05/12/24 12:05/12/24 12: Laboratory Results WBC 11.44 10^3/uL (3.29-11.43) H 05/12/24 12: RBC 4.93 10^6/uL (3.85-5.65) 05/12/24 12: Hgb 15.60 g/dL (11.27-16.99) 05/12/24 12: Hct 45.3 % (37-53) 05/12/24 12: MCV 91.9 fl (82-101) 05/12/24 12: MCH 31.6 pg (27-33) 05/12/24 12: MCHC 34.4 g/dL (30-55) 05/12/24 12: RDW 11.9 % (12.1-15.1) L 05/12/24 12: Plt Count 322 10^3/cmm (157-399) 05/12/24 12: MPV 9.6 fL (7.4-10.4) 05/12/24 12: Neut % (Auto) 74.4 % 05/12/24 12: Lymph % (Auto) 17.8 % 05/12/24 12: [place] % (Auto) 6.8 % 05/12/24 12: Eos % (Auto) 0.3 % 05/12/24 12: Baso % (Auto) 0.3 % 05/12/24 12: Neut # (Auto) 8.50 10^3/uL (1.8-7.7) H 05/12/24 12: Lymph # (Auto) 2.0 10^3/uL (0.8-4.8) 05/12/24 12: [place] # (Auto) 0.8 10^3/uL (0.2-0.9) 05/12/24 12: Eos # (Auto) 0.0 10^3/uL (0.0-0.8) 05/12/24 12: Baso # (Auto) 0.0 10^3/uL (0.0-0.1) 05/12/24 12:27 Nucleated RBC % (auto) 0 % 05/12/24 12:27 Nucleated RBCs # 0.0 /100WBC 05/12/24 12:27 Specimen Type Arterial 05/12/24 12:06 Sample Site Radial, right 05/12/24 12:06 ABG pH 7.38 (7.35-7.45) 05/12/24 12:06 ABG pCO2 19.1 mmHg (35-45) L* 05/12/24 12:06 ABG pO2 118.0 mmHg (80.0-100.0) H 05/12/24 12:06 ABG PO2/FiO2 Ratio 561 05/12/24 12:06 ABG HCO3 11.3 mmol/L (22-26) L 05/12/24 12:06 ABG Base Excess -10.8 mmol/L (-2.0-2.0) L 05/12/24 12:06 Calixto Test Pos 05/12/24 12:06 Hematocrit 50.1 % (42-52) 05/12/24 12:06 Hgb O2 Saturation 97.9 % (95-100) 05/12/24 12:06 Carboxyhemoglobin 1.1 %THgb (0.4-20.1) 05/12/24 12:06 Methemoglobin 0.3 % (0.4-1.5) L 05/12/24 12:06 Total Hemoglobin 16.4 g/dL (14-18) 05/12/24 12:06 O2 Delivery Device Room air 05/12/24 12:06 FiO2 21.0 % 05/12/24 12:06 Culinary Assistant ID [place] 05/12/24 12:06 Sodium 138 mmol/L (136-145) 05/12/24 12:27 Potassium 4.6 mmol/L (3.5-5.1) 05/12/24 12:27 Chloride 98 mmol/L (98-107) 05/12/24 12:27 Carbon Dioxide 16 mmol/L (22-29) L 05/12/24 12:27 Anion Gap 28.6 (5-19) H 05/12/24 12:27 BUN 17 mg/dL (6-20) 05/12/24 12:27 Creatinine 1.0 mg/dL (0.7-1.2) 05/12/24 12:27 GFR Calculation 84.5 mL/min (90-130) L 05/12/24 12:27 Glucose 333 mg/dL (65-115) H 05/12/24 12:27 POC Glucose 259 mg/dL (70-110) H 05/12/24 13:30 Calculated Osmolality 301 mOsm/kg (285-295) H 05/12/24 12:27 Calcium 9.2 mg/dL (8.5-10.5) 05/12/24 12:27 Phosphorus 2.4 mg/dL (2.5-4.5) L 05/12/24 12:27 Magnesium 1.7 mg/dL (1.7-2.3) 05/12/24 12:27 Total Bilirubin 0.7 mg/dL (0.15-1.2) 05/12/24 12:27 AST 26 U/L (0-40) 05/12/24 12:27 ALT 25 U/L (0-41) 05/12/24 12:27 Alkaline Phosphatase 116 U/L (40-130) 05/12/24 12:27 Total Protein 8.1 g/dL (6.6-8.7) 05/12/24 12:27 Albumin 4.8 g/dL (3.5-5.2) 05/12/24 12:27 Globulin 3.3 g/dL (1.3-4.6) 05/12/24 12:27 Lipase 29 U/L (13-60) 05/12/24 12:27 Urine Color Yellow (Yellow) 05/12/24 12:57 Urine Appearance Clear (CLEAR) 05/12/24 12:57 Urine pH 5.5 (5-7) 05/12/24 12:57 Ur Specific [place] 1.032 (1.005-1.030) H 05/12/24 12:57 Urine Protein 1+ (Negative) A 05/12/24 12:57 Urine Glucose (UA) 3+ (Normal) H 05/12/24 12:57 Urine Ketones 4+ (Negative) 05/12/24 12:57 Urine Blood Negative (Negative) 05/12/24 12:57 Urine Nitrate Negative (Negative) 05/12/24 12:57 Urine Bilirubin Negative (Negative) 05/12/24 12:57 Urine Urobilinogen 0.2 mg/dL (Negative) 05/12/24 12:57 Ur Leukocyte Esterase Negative (Negative) 05/12/24 12:57 Urine RBC 0-2 /hpf (0-2) 05/12/24 12:57 Urine WBC 0-5 /hpf (0-5) 05/12/24 12:57 Ur Squamous Epith Cells 0-5 /hpf (0-5) 05/12/24 12:57 Amorphous Sediment Not Reportable 05/12/24 12:57 Urine Bacteria None seen /hpf (NONE) 05/12/24 12:57 Hyaline Casts 2.87 /lpf 05/12/24 12:57 Gastric Occult Blood Positive (Negative) H 05/12/24 12:21 Serum Ketones Negative (Negative) 05/12/24 12:27 All radiology interpretation(s) finalized by discharge Discharge Plan Discharge Patient Disposition: Placed in Observation Clinical Impression: Type 1 diabetes mellitus, Dehydration, Vomiting Condition: Stable Prescriptions: No Action (DME) True Metrix Glucose Test Strip Strip See Rx Instructions .Route Rx Instructions: As directed (DME) Dexcom G6 Business Broker Misc See Rx Instructions .Route Qty: 1 0RF Rx Instructions: As directed (DME) pen needle, diabetic [TechLITE Pen Needle] 31 gauge x 5/16 needle See Rx Instructions .ROUTE .MEDSUPPLY Qty: 1200 Rx Instructions: As directed insulin aspart U-100 [Novolog FlexPen U-100 Insulin] 100 unit/mL (3 mL) insulin pen 10 unit SUBCUT TID MDD 30 60 Days Qty: 30 0RF (DME) pen needle, diabetic [TechLITE Pen Needle] 32 gauge x 5/32 needle See Rx Instructions .ROUTE .COMPLEX Qty: 100 3RF Dose Instruction: USE DIRECTED Rx Instructions: USE DIRECTED (DME) Dexcom G6 Transmitter Device See Rx Instructions .Route Qty: 1 1RF Rx Instructions: As directed (DME) Dexcom G6 Sensor Device See Rx Instructions .ROUTE .COMPLEX Qty: 9 0RF Dose Instruction: USE DIRECTED Rx Instructions: USE DIRECTED insulin glargine 100 unit/mL (3 mL) Insulin Pen 30 unit SUBCUT BID Referrals: Morris Bentley, AIR ANALYSIS ENGINEERING TECHNICIAN [Primary Care Provider] - Coding Level of Care Code ED Production Maintenance Technician for Chg Fwd
[2024-05-12] MEDS: sodium chloride 0.9% 1,000 ML 999 ML IV ×3 (12:18→15:16)
[2024-05-12] MEDS: metoclopramide 5 mg/mL SDV 2 mL 10 MG IVP (12:18)
[2024-05-12] MEDS: diphenhydrAMINE 50 mg/mL SDV 1mL IVP (12:18)
[2024-05-12 12:20] LABS: ABG PH Result 7.38 (7.35-7.45); Arterial Blood Gas Hematocrit 50.1 % (42-52); Base Excess ABG -10.8 mmol/L (-2.0-2.0); Blood Gas Allen Test Pos; Blood Gas Sample Type Arterial; Carboxyhemoglobin 1.1 %THgb (0.4-20.1); HCO3 ABG 11.3 mmol/L (22-26); HGB O2 Sat 97.9 % (95-100); Methemoglobin 0.3 % (0.4-1.5); Total Hemoglobin 16.4 g/dL (14-18)
[2024-05-12 12:21] LABS: ABG PCO2 19.1 mmHg (35-45); Blood Gas Operator Identificat MONRO; Blood Gas Sample Site Radial, right; Oxygen Device ROOM AIR; PO2 FiO2 Ratio Arterial Blood 561
[2024-05-12 12:45] LABS: Gastricult Occult Blood Positive (Negative)
[2024-05-12] MEDS: pantoprazole 40 mg SDV 80 MG IVP (12:54)
[2024-05-12 13:01] LABS: Glucose Point of Care 260 mg/dL (70-110)
[2024-05-12 13:01] LABS: Basophils % 0.3 %; Eosinophils % 0.3 %; Hematocrit 45.3 % (37-53); Lymphocytes % 17.8 %; Mean Corpuscular HGB Conc 34.4 g/dL (30-55); Mean Corpuscular Hemoglobin 31.6 pg (27-33); Mean Corpuscular Volume 91.9 fl (82-101); Mean Platelet Volume 9.6 fL (7.4-10.4); Monocytes # 0.8 10^3/uL (0.2-0.9); Monocytes % 6.8 %; Neutrophils % 74.4 %; Nucleated Red Blood Cells % 0 %; Platelet Count 322 10^3/cmm (157-399); Red Blood Count 4.93 10^6/uL (3.85-5.65); Red Cell Distribution Width 11.9 % (12.1-15.1); White Blood Count 11.44 10^3/uL (3.29-11.43)
[2024-05-12 13:09] LABS: Ketone (Acetest) Serum Negative (Negative)
[2024-05-12 13:10] LABS: Bilirubin Urine Negative (Negative); Blood Urine Negative (Negative); Glucose Urine UA 3+ (Normal); Ketones Urine 4+ (Negative); Leukocyte Esterase Urine Negative (Negative); Nitrate Urine Negative (Negative); Protein Urine 1+ (Negative); Urine Appearance Clear (CLEAR); Urine Color Yellow (Yellow); Urobilinogen Urine 0.2 mg/dL (Negative); pH Urine 5.5 (5-7)
[2024-05-12 13:11] LABS: Alanine Aminotransferase 25 U/L (0-41); Albumin Level 4.8 g/dL (3.5-5.2); Alkaline Phosphatase 116 U/L (40-130); Anion Gap 28.6 (5-19); Aspartate Amino Transferase 26 U/L (0-40); Blood Urea Nitrogen 17 mg/dL (6-20); Calcium 9.2 mg/dL (8.5-10.5); Carbon Dioxide 16 mmol/L (22-29); Chloride 98 mmol/L (98-107); Creatinine Clr Calc Pharmacy 93.3978; Globulin 3.3 g/dL (1.3-4.6); Glomerular Filtration Rate 84.5 mL/min (90-130); Glucose 333 mg/dL (65-115); Lipase 29 U/L (13-60); Magnesium 1.7 mg/dL (1.7-2.3); Osmolality Calculated 301 mOsm/kg (285-295); Phosphorus 2.4 mg/dL (2.5-4.5); Potassium 4.6 mmol/L (3.5-5.1); Sodium 138 mmol/L (136-145); Total Bilirubin 0.7 mg/dL (0.15-1.2); Total Protein 8.1 g/dL (6.6-8.7)
[2024-05-12 13:13] LABS: Add Urine Microscopic? YES; Bacteria Urine None Seen /hpf; Hyaline Casts Urine 2.87 /lpf; RBC Urine 0-2 /hpf (0-2); Squamous Epithelial Cell Urine 0-5 /hpf (0-5); WBC Urine 0-5 /hpf (0-5)
[2024-05-12 13:19] LABS: Specific Gravity, Urine 1.032 (1.005-1.030)
[2024-05-12 13:37] LABS: Glucose Point of Care 259 mg/dL (70-110)
--- NOTE | 2024-05-12 13:53 | P.HP_ITS ---
Providers/Chief Complaint 2 Admitting Physician: Dasha Ramirez MD Primary Care Provider: ARCHIE Muniz Chief Complaint: HIGH SUGAR History of Present Illness El Mena is a 34 year old male with no significant past medical history other than type 1 diabetes on Lantus 30 units twice daily at home along with a moderate dose intensity sliding scale states that he has been having nausea and vomiting for the last 3 days. He has had DKA twice before. He does not think he missed his insulin however has been sick for the last 1 or 2 days after having nausea vomiting. He states he has vomited to the extent of having blood in vomitus. He has had coffee-ground emesis. He has had this before however unable to give me complete details. Has never had an EGD before. He says his epigastric region hurts at this time and is very sore. Denies diarrhea, shortness of breath, chest pain or any other symptoms at this time. Denies eating out denies eating canned food. He cannot identify possible trigger. Denies having recent illness Did state that he had a brother 18 years old who of an arrhythmia. No other history of heart disease. Medications/Allergies Home Medications Medication Instructions Recorded Confirmed Last Taken Type blood sugar diagnostic (True 05/09/22 05/12/24 Unknown History Metrix Glucose Test Strip) blood-glucose meter,continuous #1 ea 05/23/22 05/12/24 Unknown Rx (Dexcom G6 [employer]) pen needle, diabetic 31 gauge x #1,200 ea 07/01/23 05/12/24 Unknown History 11/05 (TechLITE Pen Needle) insulin aspart U-100 100 unit/mL 10 unit (0.1 mL) SUBCUT TID 60 09/29/23 05/12/24 05/12/24 Rx (3 mL) subcutaneous pen (Novolog days #30 mL FlexPen U-100 Insulin aspart) pen needle, diabetic 32 gauge x #100 ea 01/05/24 05/12/24 Unknown Rx (TechLITE Pen Needle) blood-glucose transmitter (Dexcom #1 ea 03/15/24 05/12/24 Unknown Rx G6 Transmitter device) blood-glucose sensor (Dexcom G6 #9 ea 05/03/24 05/12/24 Unknown Rx Sensor device) insulin glargine 100 unit/mL (3 30 unit SUBCUT BID 05/12/24 05/12/24 05/12/24 History mL) subcutaneous pen Allergies Allergy/AdvReac Type Severity Reaction Status Date / Time No Known Allergies Allergy Verified 02/18/24 07:28 PFSH Acute 2 PFSH: Medical History Polyneuropathy due to type 1 diabetes mellitus Marijuana use Type 1 diabetes mellitus Family History Other Hypertension Social History Smoking and tobacco/nicotine status: never used tobacco/nicotine Additional social history: marijuana use Vitals/I&O/Wt Last Vital Signs Temp 97.7 F 05/12/24 13:53 Pulse 74 05/12/24 13:45 Resp 16 05/12/24 13:45 BP 126/76 05/12/24 13:45 Pulse Ox 100 05/12/24 13:45 O2 Del Method Room Air 05/12/24 13:45 05/11/24 05/12/24 05/12/24 22:59 06:59 14:59 Intake Total 1000 / 1000 Balance 1000 / 1000 Weight last 48 hrs Weight 69.4 kg Physical Exam 2 Narrative: General: Alert oriented x3, patient seen laying in bed appearing comfortable, appears dehydrated, dry mucous membranes HEENT: Normocephalic, atraumatic, EOMI, Cardio: Regular rate rhythm, normal S1-S2, Respiratory: Good bilateral air entry, no wheezes no rhonchi appreciated GI: Abdomen soft, mildly tender at epigastric region, nondistended bowel sounds + Extremities: Pulses 2+, no edema, no cyanosis Data 05/12/24 12:27 05/12/24 12:27 A&P Assessment and plan (1) Hyperlipemia, mixed: (2) Type 1 diabetes mellitus: (3) Vomiting: (4) Dehydration: (5) DKA (diabetic ketoacidosis): Plan #Early DKA #Upper GI bleed #Hematemesis, possibility of Dorcas-Ulloa tear #Type 1 diabetes -Patient did receive 2 L normal saline bolus. Will order an additional normal saline bolus at this time and placed on IV fluids ? Order DKA protocol ? Anion gap is 28. I will place patient on insulin drip. Ketones are negative. ? Consult general surgery for possible EGD. There is possibility of Dorcas- Ulloa tear and irritation from retching and vomiting however will need to confirm ? Hemoglobin is stable at this time but patient is quite hemoconcentrated secondary to severe dehydration secondary to nausea vomiting for the last 3 days. ? WBC count 11.44 most likely reactive to stress. Low likelihood of infection at this time ? Will check troponins x 3 and baseline EKG. ? Placed on IV Protonix 40 twice daily ? Once gap closes we will bridge to Lantus. ? N.p.o. ? Will check CT chest abdomen pelvis Full code DVT prophylaxis: SCDs. Attestations 2 Medical Necessity Statement*: Upper GI bleed, DKA, nausea vomiting requiring IV fluids hospitalization insulin drip at this time. Will potentially need an EGD as well. Critical Care Time: The high probability of a clinically significant, sudden or life threatening deterioration of the patient's [endocrinology, gastroenterology] system(s) required my full and direct attention, intervention and personal management. The critical care time is as shown. This time is in addition to time spent performing any reported procedures but includes the following: [x] Data and vital sign review and interpretation [x] Patient assessment, examination and intervention [x] Documentation [x] Medication orders and management Critical Care Time (min): 60 Coding Level of Care Code Acute Code for Chg Fwd Diagnoses Hyperlipemia, mixed E78.2 Type 1 diabetes mellitus E10.9 Vomiting R11.10 Dehydration E86.0 DKA (diabetic ketoacidosis) E11.10
--- NOTE | 2024-05-12 13:54 | ECG_ITS ---
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
--- NOTE | 2024-05-12 14:02 | PC.NURSE ---
pt requesting water, Dr. Isaacs asked by this nurse and okayed.
[2024-05-12] MEDS: enoxaparin 40 mg/0.4 mL Syringe SUBCUT (14:17)
--- NOTE | 2024-05-12 15:21 | CTR_ITS ---
PROCEDURE INFORMATION: Exam: CT Chest With Contrast; Diagnostic Exam date and time: 05/12/2024 4:51 PM Age: 34 years old Clinical indication: Abdominal pain; Generalized; Chest pressure; Additional info: Upper gi bleed, dka TECHNIQUE: Imaging protocol: Diagnostic computed tomography of the chest with contrast. Radiation optimization: All CT scans at this facility use at least one of these dose optimization techniques: automated exposure control; mA and/or kV adjustment per patient size (includes targeted exams where dose is matched to clinical indication); or iterative reconstruction. Contrast material: OMNIPAQUE 350; Contrast volume: 100 ml; Contrast route: INTRAVENOUS (IV); COMPARISON: CT chest [facility] [id number] 05/12/2024 4:51 PM RADIATION DOSE METRICS: Total DLP (mGy-cm): 378.8 FINDINGS: The CT chest examination was dictated on a separate report. PROCEDURE INFORMATION: Exam: CT Abdomen And Pelvis With Contrast Exam date and time: 05/12/2024 4:51 PM Age: 34 years old Clinical indication: Abdominal pain; Generalized; Chest pressure; Additional info: Upper gi bleed, dka TECHNIQUE: Imaging protocol: Computed tomography of the abdomen and pelvis with contrast. Radiation optimization: All CT scans at this facility use at least one of these dose optimization techniques: automated exposure control; mA and/or kV adjustment per patient size (includes targeted exams where dose is matched to clinical indication); or iterative reconstruction. Contrast material: OMNIPAQUE 350; Contrast volume: 100 ml; Contrast route: INTRAVENOUS (IV); COMPARISON: CT chest [facility] [id number] 05/12/2024 4:51 PM RADIATION DOSE METRICS: Total DLP (mGy-cm): 378.8 FINDINGS: Esophagus: No gross contrast extravasation from the distal esophagus. Liver: There is an area of focal fatty infiltration along the falciform ligament. Left hepatic lobe flash filling hemangioma. Gallbladder and biliary ducts: Normal. No calcified stones. No ductal dilation. Pancreas: Normal. No ductal dilation. Spleen: Normal. No splenomegaly. Adrenal glands: Normal. No mass. Kidneys and ureters: Normal. No hydronephrosis. Stomach and bowel: Unremarkable. No obstruction. No mucosal thickening. Appendix: No evidence of appendicitis. Intraperitoneal space: Unremarkable. No free air. No significant fluid collection. Vasculature: Unremarkable. No abdominal aortic aneurysm. Lymph nodes: Unremarkable. No enlarged lymph nodes. Urinary bladder: Unremarkable as visualized. Reproductive: Unremarkable as visualized. Bones/joints: L5-S1 pars defect. Right pelvic bone island. Soft tissues: Unremarkable. CT/CT chest abdpel w/*[id number] IMPRESSION: The CT chest examination was dictated on a separate report. IMPRESSION: No gross contrast extravasation from the distal esophagus.
[2024-05-12] MEDS: ondansetron 2 mg/ML SDV 2 mL 4 MG IVP ×2 (15:41→21:55)
--- NOTE | 2024-05-12 16:10 | CTR_ITS ---
PROCEDURE INFORMATION: Exam: CT Chest Without Contrast; Diagnostic Exam date and time: 05/12/2024 4:51 PM Age: 34 years old Clinical indication: Pain; Other: Ugi bleed, dka; Additional info: Rule out esophageal perforation. , Oral water soluble contrast TECHNIQUE: Imaging protocol: Diagnostic computed tomography of the chest without contrast. Radiation optimization: All CT scans at this facility use at least one of these dose optimization techniques: automated exposure control; mA and/or kV adjustment per patient size (includes targeted exams where dose is matched to clinical indication); or iterative reconstruction. COMPARISON: CT chest abdpel w/*[id number] 05/12/2024 4:51 PM RADIATION DOSE METRICS: Total DLP (mGy-cm): 305.5 FINDINGS: Thymus: Tissue in the anterior mediastinum may relate to residual thymus. Lungs: Unremarkable. No consolidation. No masses. Pleural spaces: Unremarkable. No pneumothorax. No pleural effusion. Heart: Unremarkable. No cardiomegaly. No pericardial effusion. Coronary arteries: No detectable coronary artery calcifications. Esophagus: Contrast can be seen within the esophagus. No gross evidence of contrast extravasation. Lymph nodes: Unremarkable. No enlarged lymph nodes. Vasculature: Unremarkable. No aortic aneurysm. Bones/joints: Unremarkable. No acute fracture. Soft tissues: Unremarkable. CT/CT chest [facility] [id number] IMPRESSION: No evidence of gross contrast extravasation from the esophagus.
[2024-05-12] MEDS: morphine 4 mg/mL SDV 1 mL 2 MG IVP ×2 (16:15→20:17)
--- NOTE | 2024-05-12 16:28 | PM.MISC ---
Miscellaneous Note Note: Noted consult for possible Dorcas Ulloa. Patient is stable Hgb 15.6. Agree with resuscitation, high dose PPI. Will defer scope for now. Full consult note to follow
--- NOTE | 2024-05-12 16:30 | P.CONIM_ITS ---
Providers/Reason For Consult 2 Consulting Physician/Specialty*: Dr. Morris general surgery Reason for Consult*: Hematemesis Attending Physician: Dasha Ramirez MD Primary Care Provider: ARCHIE Muniz History of Present Illness History of Present Illness El Mena is a 34 year old male admitted with DKA whom general surgery was consulted for hematemesis and concern for Dorcas-Ulloa. Patient has had multiple bloody emesis. No chest or belly pain. Medications/Allergies Home Medications Medication Instructions Recorded Confirmed Last Taken Type blood sugar diagnostic (True 05/09/22 05/12/24 Unknown History Metrix Glucose Test Strip) blood-glucose meter,continuous #1 ea 05/23/22 05/12/24 Unknown Rx (Dexcom G6 [employer]) pen needle, diabetic 31 gauge x #1,200 ea 07/01/23 05/12/24 Unknown History 11/05 (TechLITE Pen Needle) insulin aspart U-100 100 unit/mL 10 unit (0.1 mL) SUBCUT TID 60 09/29/23 05/12/24 05/12/24 Rx (3 mL) subcutaneous pen (Novolog days #30 mL FlexPen U-100 Insulin aspart) pen needle, diabetic 32 gauge x #100 ea 01/05/24 05/12/24 Unknown Rx (TechLITE Pen Needle) blood-glucose transmitter (Dexcom #1 ea 03/15/24 05/12/24 Unknown Rx G6 Transmitter device) blood-glucose sensor (Dexcom G6 #9 ea 05/03/24 05/12/24 Unknown Rx Sensor device) insulin glargine 100 unit/mL (3 30 unit SUBCUT BID 05/12/24 05/12/24 05/12/24 History mL) subcutaneous pen Allergies Allergy/AdvReac Type Severity Reaction Status Date / Time No Known Allergies Allergy Verified 02/18/24 07:28 Current Medications Generic Name Dose Route Start Last Admin Trade Name Freq PRN Reason Stop Dose Admin Morphine Sulfate 2 mg 05/12/24 15:50 05/12/24 16:15 Morphine 4 Mg/Ml Sdv 1 Ml IVP 2 mg Q4H PRN Administration SEVERE PAIN Ondansetron HCl 4 mg 05/12/24 13:54 05/12/24 15:41 Ondansetron 2 Mg/Ml Sdv 2 Ml IVP 4 mg Q6H PRN Administration NAUSEA AND VOMITING PFSH Acute 2 PFSH: Medical History Polyneuropathy due to type 1 diabetes mellitus Marijuana use Type 1 diabetes mellitus Family History Other Hypertension Social History Smoking and tobacco/nicotine status: never used tobacco/nicotine Additional social history: marijuana use Vitals/I&O/Wt Last Vital Signs Temp 98.5 F 05/12/24 14:00 Pulse 83 05/12/24 16:06 Resp 21 H 05/12/24 14:00 BP 126/76 05/12/24 14:44 Pulse Ox 97 05/12/24 16:06 O2 Del Method Room Air 05/12/24 16:06 05/12/24 05/12/24 05/12/24 06:59 14:59 22:59 Intake Total 1000 / 1000 1000 / 2000 Balance 1000 / 1000 1000 / 2000 Weight last 48 hrs Weight 154 lb 5.177 oz Weight 153 lb Physical Exam 2 Narrative: Chest: Unlabored breathing room air. No lymphadenopathy. Heart: Regular rate and rhythm. Abdomen: Soft, nontender, nondistended. No masses or lymphadenopathy. Data 05/13/24 02:05 05/13/24 02:05 A&P Assessment and plan (1) Hematemesis: Plan 34-year-old male admitted with DKA. General surgery consulted for Dorcas- Ulloa. Treated conservatively with resuscitation and PPI. Deferring scope for now. Coding Level of Care Code 90915 Diagnoses Hematemesis K92.0 Time Spent (min) 30
[2024-05-12 17:13] LABS: D Dimer 1.08 ug/mLFEU (0-0.59)
[2024-05-12 17:22] LABS: Troponin(5th) Baseline 10 ng/L (0-15)
[2024-05-12 17:23] LABS: Anion Gap 25.4 (5-19); Blood Urea Nitrogen 15 mg/dL (6-20); Calcium 8.1 mg/dL (8.5-10.5); Carbon Dioxide 14 mmol/L (22-29); Chloride 102 mmol/L (98-107); Creatinine Clr Calc Pharmacy 104.1605; Glomerular Filtration Rate 95.5 mL/min (90-130); Glucose 238 mg/dL (65-115); Osmolality Calculated 293 mOsm/kg (285-295); Potassium 4.4 mmol/L (3.5-5.1); Sodium 137 mmol/L (136-145)
[2024-05-12 17:26] LABS: Lactic Sepsis W/Reflex 1.3 mmol/L (0.5-2.2)
[2024-05-12 18:28] LABS: Anion Gap 21.3 (5-19); Blood Urea Nitrogen 12 mg/dL (6-20); Calcium 7.2 mg/dL (8.5-10.5); Carbon Dioxide 13 mmol/L (22-29); Chloride 106 mmol/L (98-107); Creatinine Clr Calc Pharmacy 117.1806; Glomerular Filtration Rate 109.4 mL/min (90-130); Glucose 221 mg/dL (65-115); Osmolality Calculated 289 mOsm/kg (285-295); Potassium 4.3 mmol/L (3.5-5.1); Sodium 136 mmol/L (136-145)
[2024-05-12] MEDS: D5-NS 0.45% + KCL 20 mEq 20 MEQ/1,000 ML BAG 150 MEQ IV (18:32)
[2024-05-12] MEDS: INSULIN REGULAR IN 0.9 % NACL 100 UNIT/100 ML BAG 7 UNIT IV (18:33)
[2024-05-12 18:36] LABS: Troponin 5 2HR 9.66 ng/L (0-15); Troponin 5 2HR Delta -0.34 ABS# (0-10)
[2024-05-12 19:13] LABS: Glucose Point of Care 236 mg/dL (70-110)
[2024-05-12 20:15] LABS: Glucose Point of Care 144 mg/dL (70-110)
[2024-05-12 22:00] LABS: Glucose Point of Care 139 mg/dL (70-110)
[2024-05-12 22:04] LABS: Estmated Average Glucose 194; Hemoglobin A1C 8.4 % (4.0-6.0)
[2024-05-12 22:25] LABS: Troponin 5 6HR 11.36 ng/L (0-15); Troponin 5 6HR Delta 1.36 ng/L (0-12)
[2024-05-12 22:26] LABS: Blood Urea Nitrogen 11 mg/dL (6-20); Calcium 8.1 mg/dL (8.5-10.5); Carbon Dioxide 18 mmol/L (22-29); Chloride 106 mmol/L (98-107); Creatinine Clr Calc Pharmacy 117.1806; Glomerular Filtration Rate 109.4 mL/min (90-130); Glucose 121 mg/dL (65-115); Osmolality Calculated 287 mOsm/kg (285-295); Sodium 138 mmol/L (136-145)
[2024-05-12 23:05] LABS: Glucose Point of Care 128 mg/dL (70-110)
[2024-05-13] VITALS (23 sets, daily range): BP systolic 87–127; BP diastolic 46–74; PULSE 51–79; RESP 12–24; TEMP 36.5–37; O2SAT 96–100
[2024-05-13 00:05] LABS: Glucose Point of Care 117 mg/dL (70-110)
[2024-05-13 01:04] LABS: Glucose Point of Care 129 mg/dL (70-110)
[2024-05-13] MEDS: pantoprazole 40 mg SDV IVP ×2 (01:07→15:25)
[2024-05-13] MEDS: morphine 4 mg/mL SDV 1 mL 2 MG IVP ×5 (01:07→20:03)
[2024-05-13] MEDS: D5-NS 0.45% + KCL 20 mEq 20 MEQ/1,000 ML BAG 150 MEQ IV (01:09)
[2024-05-13 02:10] LABS: Glucose Point of Care 144 mg/dL (70-110)
[2024-05-13 02:16] LABS: Basophils # 0.1 10^3/uL (0.0-0.1); Basophils % 0.6 %; Eosinophils # 0.1 10^3/uL (0.0-0.8); Hematocrit 35.6 % (37-53); Lymphocytes # 2.1 10^3/uL (0.8-4.8); Mean Corpuscular HGB Conc 33.7 g/dL (30-55); Mean Corpuscular Hemoglobin 31.2 pg (27-33); Mean Corpuscular Volume 92.5 fl (82-101); Mean Platelet Volume 9.6 fL (7.4-10.4); Monocytes # 0.9 10^3/uL (0.2-0.9); Monocytes % 9.8 %; Neutrophils # 5.56 10^3/uL (1.8-7.7); Neutrophils % 64.4 %; Nucleated Red Blood Cells % 0 %; Platelet Count 212 10^3/cmm (157-399); Red Blood Count 3.85 10^6/uL (3.85-5.65); Red Cell Distribution Width 11.9 % (12.1-15.1); White Blood Count 8.64 10^3/uL (3.29-11.43)
[2024-05-13 02:30] LABS: Alanine Aminotransferase 17 U/L (0-41); Albumin Level 3.6 g/dL (3.5-5.2); Alkaline Phosphatase 70 U/L (40-130); Anion Gap 14.1 (5-19); Aspartate Amino Transferase 13 U/L (0-40); Blood Urea Nitrogen 10 mg/dL (6-20); Calcium 7.7 mg/dL (8.5-10.5); Carbon Dioxide 20 mmol/L (22-29); Chloride 108 mmol/L (98-107); Creatinine Clr Calc Pharmacy 133.9206; Globulin 2.3 g/dL (1.3-4.6); Glomerular Filtration Rate 127.6 mL/min (90-130); Glucose 143 mg/dL (65-115); Osmolality Calculated 288 mOsm/kg (285-295); Potassium 4.1 mmol/L (3.5-5.1); Sodium 138 mmol/L (136-145); Total Bilirubin 0.5 mg/dL (0.15-1.2); Total Protein 5.9 g/dL (6.6-8.7)
[2024-05-13 03:19] LABS: Glucose Point of Care 131 mg/dL (70-110)
[2024-05-13 04:48] LABS: Glucose Point of Care 128 mg/dL (70-110)
[2024-05-13] MEDS: insulin glargine 100 units/1 mL 27 UNIT SUBCUT ×2 (05:16→16:09)
[2024-05-13] MEDS: ondansetron 2 mg/ML SDV 2 mL 4 MG IVP ×3 (05:30→18:58)
[2024-05-13 06:40] LABS: Glucose Point of Care 157 mg/dL (70-110)
[2024-05-13 10:26] LABS: Glucose Point of Care 126 mg/dL (70-110)
--- NOTE | 2024-05-13 12:29 | P.PN_ITS ---
Subjective 2 Subjective: Seen him at bedside this morning. Last episode of vomiting was yesterday. Denies any complaint of nausea, vomiting, abdominal pain this morning, states feeling better as compared to admission. Was supposed to go for upper GI endoscopy for hematemesis but patient refused. Will continue to monitor CBC. Will transfer to [facility] for further care. Medications: Reviewed: Yes Vitals/I&O/Wt Last Vital Signs Temp 97.7 F 05/12/24 20:19 Pulse 53 L 05/13/24 08:00 Resp 18 05/13/24 10:17 BP 96/51 05/13/24 08:00 Pulse Ox 97 05/13/24 08:00 O2 Del Method Room Air 05/13/24 06:00 05/12/24 05/13/24 05/13/24 22:59 06:59 14:59 Intake Total 2260.833 / 3260.833 1573.667 / 4834.500 Output Total 900 / 900 Balance 2260.833 / 3260.833 673.667 / 3934.500 Weight last 48 hrs Weight 70.352 kg Weight 70 kg Weight 69.4 kg Physical Exam 2 Narrative: General: Alert oriented x3, patient seen laying in bed appearing comfortable, appears dehydrated, dry mucous membranes HEENT: Normocephalic, atraumatic, EOMI, Cardio: Regular rate rhythm, normal S1-S2, Respiratory: Good bilateral air entry, no wheezes no rhonchi appreciated GI: Abdomen soft, mildly tender at epigastric region, nondistended bowel sounds + Extremities: Pulses 2+, no edema, no cyanosis Data 05/13/24 02:05 05/13/24 02:05 A&P Assessment and plan (1) Hyperlipemia, mixed: (2) Type 1 diabetes mellitus: (3) Vomiting: (4) Dehydration: (5) DKA (diabetic ketoacidosis): Plan #Early DKA #Upper GI bleed #Hematemesis, possibility of Dorcas-Ulloa tear #Type 1 diabetes -Patient did receive 2 L normal saline bolus. Will order an additional normal saline bolus at this time and placed on IV fluids ? Order DKA protocol ? Anion gap is 28. I will place patient on insulin drip. Ketones are negative. ? Consult general surgery for possible EGD. There is possibility of Dorcas- Ulloa tear and irritation from retching and vomiting however will need to confirm ? Hemoglobin is stable at this time but patient is quite hemoconcentrated secondary to severe dehydration secondary to nausea vomiting for the last 3 days. ? WBC count 11.44 most likely reactive to stress. Low likelihood of infection at this time ? Will check troponins x 3 and baseline EKG. ? Placed on IV Protonix 40 twice daily ? Once gap closes we will bridge to Lantus. ? N.p.o. ? Will check CT chest abdomen pelvis Full code DVT prophylaxis: SCDs. 05/13/24 Labs reviewed and are acceptable DKA resolved with anion gap of 14. Blood sugars noted. Acceptable. Continue Lantus 27 units every 12 hours and insulin lispro correction scale Had hematemesis and plan was for upper GI endoscopy today but patient refused. Since no more episodes of vomiting will continue to monitor CBC for now. Continue Protonix 40 mg IV every 12 hours. Patient stable to be transferred to [facility] for further care. Attestations 2 Medical Necessity Statement*: Anticipating discharge in 24 hours Time Spent in Patient Care: 20 minutes Coding Level of Care Code Acute Code for Chg Fwd Diagnoses Hyperlipemia, mixed E78.2 Type 1 diabetes mellitus E10.9 Vomiting R11.10 Dehydration E86.0 DKA (diabetic ketoacidosis) E11.10 Time Spent (min) 20
[2024-05-13 15:17] LABS: Glucose Point of Care 200 mg/dL (70-110)
[2024-05-13] MEDS: insulin lispro 100 unit/1 mL SUBCUT ×2 (16:08→22:40)
[2024-05-13 22:34] LABS: Glucose Point of Care 214 mg/dL (70-110)
[2024-05-14] VITALS (10 sets, daily range): BP systolic 89–127; BP diastolic 58–77; PULSE 61–77; RESP 16–22; TEMP 36.6–36.9; O2SAT 97–99
[2024-05-14] MEDS: pantoprazole 40 mg SDV IVP ×2 (00:40→12:22)
[2024-05-14] MEDS: morphine 4 mg/mL SDV 1 mL 2 MG IVP ×4 (00:43→20:07)
[2024-05-14] MEDS: ondansetron 2 mg/ML SDV 2 mL 4 MG IVP ×3 (04:19→20:07)
[2024-05-14 04:27] LABS: Glucose Point of Care 63 mg/dL (70-110)
[2024-05-14 04:50] LABS: Basophils # 0.1 10^3/uL (0.0-0.1); Basophils % 0.7 %; Eosinophils # 0.1 10^3/uL (0.0-0.8); Eosinophils % 1.3 %; Hematocrit 39.6 % (37-53); Lymphocytes # 2.2 10^3/uL (0.8-4.8); Lymphocytes % 31.1 %; Mean Corpuscular HGB Conc 34.6 g/dL (30-55); Mean Corpuscular Hemoglobin 32.4 pg (27-33); Mean Corpuscular Volume 93.6 fl (82-101); Mean Platelet Volume 9.4 fL (7.4-10.4); Monocytes # 0.6 10^3/uL (0.2-0.9); Neutrophils # 4.16 10^3/uL (1.8-7.7); Neutrophils % 58.6 %; Nucleated Red Blood Cells % 0 %; Platelet Count 234 10^3/cmm (157-399); Red Blood Count 4.23 10^6/uL (3.85-5.65); Red Cell Distribution Width 11.9 % (12.1-15.1)
[2024-05-14 05:18] LABS: Anion Gap 13.8 (5-19); Blood Urea Nitrogen 5 mg/dL (6-20); Calcium 9.2 mg/dL (8.5-10.5); Carbon Dioxide 26 mmol/L (22-29); Chloride 109 mmol/L (98-107); Creatinine Clr Calc Pharmacy 134.3234; Glomerular Filtration Rate 127.6 mL/min (90-130); Glucose 52 mg/dL (65-115); Osmolality Calculated 293 mOsm/kg (285-295); Potassium 4.8 mmol/L (3.5-5.1); Sodium 144 mmol/L (136-145)
[2024-05-14 05:21] LABS: Glucose Point of Care 74 mg/dL (70-110)
[2024-05-14 07:48] LABS: Glucose Point of Care 63 mg/dL (70-110)
[2024-05-14] MEDS: polyethylene glycol 3350 Pkt 17 gm PO (09:11)
[2024-05-14] MEDS: sennosides 8.6 mg Tablet PO ×2 (09:11→18:00)
--- NOTE | 2024-05-14 09:14 | PC.NURSE ---
accucheck at 0730 ( to follow up with 0500 accucheck of 74) is 63...milk and orange juice given.
[2024-05-14 11:26] LABS: Glucose Point of Care 160 mg/dL (70-110)
[2024-05-14] MEDS: insulin lispro 100 unit/1 mL SUBCUT (11:50)
[2024-05-14] MEDS: alum-mag-hydroxide-sime 30 mL UDC 10 ML PO ×2 (11:50→18:00)
--- NOTE | 2024-05-14 12:46 | P.PN_ITS ---
Subjective 2 Subjective: Seen him at bedside this morning, no acute overnight events noted. Complained of diffuse abdominal pain this morning but no nausea or vomiting. Describes pain as 5/10 in intensity, and thinks could be likely due to constipation. Medications: Reviewed: Yes Vitals/I&O/Wt Last Vital Signs Temp 98.4 F 05/14/24 11:35 Pulse 61 05/14/24 11:35 Resp 16 05/14/24 12:24 BP 111/68 05/14/24 11:35 Pulse Ox 98 05/14/24 11:35 O2 Del Method Room Air 05/14/24 11:35 05/13/24 05/14/24 05/14/24 22:59 06:59 14:59 Intake Total 720 / 960 960 / 1920 120 / 120 Balance 720 / 960 960 / 1920 120 / 120 Weight last 48 hrs Weight 70.488 kg Weight 70.488 kg Weight 70.352 kg Weight 70 kg Physical Exam 2 Narrative: General: Alert oriented x3, patient seen laying in bed appearing comfortable, appears dehydrated, dry mucous membranes HEENT: Normocephalic, atraumatic, EOMI, Cardio: Regular rate rhythm, normal S1-S2, Respiratory: Good bilateral air entry, no wheezes no rhonchi appreciated GI: Abdomen soft, mildly tender at epigastric region, nondistended bowel sounds + Extremities: Pulses 2+, no edema, no cyanosis Data 05/14/24 04:17 05/14/24 04:17 A&P Assessment and plan (1) Hyperlipemia, mixed: (2) Type 1 diabetes mellitus: (3) Vomiting: (4) Dehydration: (5) DKA (diabetic ketoacidosis): Plan #Early DKA #Upper GI bleed #Hematemesis, possibility of Dorcas-Ulloa tear #Type 1 diabetes -Patient did receive 2 L normal saline bolus. Will order an additional normal saline bolus at this time and placed on IV fluids ? Order DKA protocol ? Anion gap is 28. I will place patient on insulin drip. Ketones are negative. ? Consult general surgery for possible EGD. There is possibility of Dorcas- Ulloa tear and irritation from retching and vomiting however will need to confirm ? Hemoglobin is stable at this time but patient is quite hemoconcentrated secondary to severe dehydration secondary to nausea vomiting for the last 3 days. ? WBC count 11.44 most likely reactive to stress. Low likelihood of infection at this time ? Will check troponins x 3 and baseline EKG. ? Placed on IV Protonix 40 twice daily ? Once gap closes we will bridge to Lantus. ? N.p.o. ? Will check CT chest abdomen pelvis Full code DVT prophylaxis: SCDs. 05/13/24 Labs reviewed and are acceptable DKA resolved with anion gap of 14. Blood sugars noted. Acceptable. Continue Lantus 27 units every 12 hours and insulin lispro correction scale Had hematemesis and plan was for upper GI endoscopy today but patient refused. Since no more episodes of vomiting will continue to monitor CBC for now. Continue Protonix 40 mg IV every 12 hours. Patient stable to be transferred to [facility] for further care. 05/14/24 Labs reviewed and are acceptable Abdominal pain likely secondary to gastritis. Will do p.o. Maalox, MiraLAX and senna for constipation Continue to monitor Anticipating discharge in a.m. Attestations 2 Medical Necessity Statement*: Abdominal pain likely secondary to gastritis and constipation, medications added continue to monitor for today and anticipating discharge in 24 hours Time Spent in Patient Care: 15 minutes Coding Level of Care Code Acute Code for Chg Fwd Diagnoses Hyperlipemia, mixed E78.2 Type 1 diabetes mellitus E10.9 Vomiting R11.10 Dehydration E86.0 DKA (diabetic ketoacidosis) E11.10 Time Spent (min) 15
[2024-05-14 14:39] LABS: Glucose Point of Care 62 mg/dL (70-110)
--- NOTE | 2024-05-14 14:51 | PC.NURSE ---
at 1435 pt stated he felt like his blood sugar was dropping....accucheck = 62....orange juice and chocolate pudding given.
[2024-05-14 17:04] LABS: Glucose Point of Care 153 mg/dL (70-110)
[2024-05-14] MEDS: insulin glargine 100 units/1 mL 10 UNIT SUBCUT (17:57)
[2024-05-14 20:28] LABS: Glucose Point of Care 213 mg/dL (70-110)
[2024-05-15] VITALS: BP 128/87; PULSE 83; RESP 19; TEMP 36.7; O2SAT 95
[2024-05-15] MEDS: pantoprazole 40 mg SDV IVP (00:56)
[2024-05-15] MEDS: alum-mag-hydroxide-sime 30 mL UDC 10 ML PO ×2 (00:59→09:35)
[2024-05-15 02:39] LABS: Glucose Point of Care 129 mg/dL (70-110)
[2024-05-15 04:00] VITALS: BP 112/69; PULSE 83; RESP 16; TEMP 36.9; O2SAT 97
[2024-05-15 07:37] VITALS: BP 115/77; PULSE 78; RESP 20; TEMP 36.8; O2SAT 98
[2024-05-15 09:24] LABS: Glucose Point of Care 349 mg/dL (70-110)
[2024-05-15] MEDS: insulin glargine 100 units/1 mL 20 UNIT SUBCUT (09:35)
[2024-05-15] MEDS: sennosides 8.6 mg Tablet PO (09:35)
--- NOTE | 2024-05-15 11:22 | PC.NURSE ---
notified hospitalist in regards to discharge order VOalte the doctor. no answer yet. will follow up. pt notified.
--- NOTE | 2024-05-15 11:41 | PM.DCS ---
Discharge Providers Date of Admission: 05/13/24 15:47 Date of Discharge: May 15, 2024 Attending Provider at Admission: Dasha Ramirez MD Attending Provider at Discharge: Tamy Prasad MD Primary Care Provider: ARCHIE Muniz Diagnoses at Discharge Discharge Diagnosis (1) Hyperlipemia, mixed: Status: Acute (2) Type 1 diabetes mellitus: Status: Acute (3) Vomiting: Status: Acute (4) Dehydration: Status: Acute (5) DKA (diabetic ketoacidosis): Status: Acute Reason for Visit Reason for Visit: HIGH SUGAR Brief History: El Mena is a 34 year old male with no significant past medical history other than type 1 diabetes on Lantus 30 units twice daily at home along with a moderate dose intensity sliding scale states that he has been having nausea and vomiting for the last 3 days. He has had DKA twice before. He does not think he missed his insulin however has been sick for the last 1 or 2 days after having nausea vomiting. He states he has vomited to the extent of having blood in vomitus. He has had coffee-ground emesis. He has had this before however unable to give me complete details. Has never had an EGD before. He says his epigastric region hurts at this time and is very sore. Denies diarrhea, shortness of breath, chest pain or any other symptoms at this time. Denies eating out denies eating canned food. He cannot identify possible trigger. Denies having recent illness Did state that he had a brother 18 years old who of an arrhythmia. No other history of heart disease. Hospital Course Hospital Course #Early DKA #Upper GI bleed #Hematemesis, possibility of Dorcas-Ulloa tear #Type 1 diabetes -Patient did receive 2 L normal saline bolus. Will order an additional normal saline bolus at this time and placed on IV fluids ? Order DKA protocol ? Anion gap is 28. I will place patient on insulin drip. Ketones are negative. ? Consult general surgery for possible EGD. There is possibility of Dorcas-Ulloa tear and irritation from retching and vomiting however will need to confirm ? Hemoglobin is stable at this time but patient is quite hemoconcentrated secondary to severe dehydration secondary to nausea vomiting for the last 3 days. ? WBC count 11.44 most likely reactive to stress. Low likelihood of infection at this time ? Will check troponins x 3 and baseline EKG. ? Placed on IV Protonix 40 twice daily ? Once gap closes we will bridge to Lantus. ? N.p.o. ? Will check CT chest abdomen pelvis Full code DVT prophylaxis: SCDs. 05/13/24 Labs reviewed and are acceptable DKA resolved with anion gap of 14. Blood sugars noted. Acceptable. Continue Lantus 27 units every 12 hours and insulin lispro correction scale Had hematemesis and plan was for upper GI endoscopy today but patient refused. Since no more episodes of vomiting will continue to monitor CBC for now. Continue Protonix 40 mg IV every 12 hours. Patient stable to be transferred to [facility] for further care. 05/14/24 Labs reviewed and are acceptable Abdominal pain likely secondary to gastritis. Will do p.o. Maalox, MiraLAX and senna for constipation Continue to monitor Anticipating discharge in a.m. 05/15/24 He is doing well, feeling well, denies any complaint of abdominal pain. Will discharge him home today and follow-up with PCP in 1 to 2 weeks. Physical Exam Narrative: General: Alert oriented x3, patient seen laying in bed appearing comfortable, appears dehydrated, dry mucous membranes HEENT: Normocephalic, atraumatic, EOMI, Cardio: Regular rate rhythm, normal S1-S2, Respiratory: Good bilateral air entry, no wheezes no rhonchi appreciated GI: Abdomen soft, mildly tender at epigastric region, nondistended bowel sounds + Extremities: Pulses 2+, no edema, no cyanosis Discharge Data Studies Completed and Pending Completed Studies During Hospitalization Category Date Time Status CT chest abdomen pelvis [CT chest abdpel w/*[id number] Cat Scan 05/12/24 15:21 Completed ] Urgent CT chest wo con [id number] Stat Cat Scan 05/12/24 16:10 Completed Radiology Impressions Chest/Abdomen/Pelvis CT 05/12/24 15:21 IMPRESSION: The CT chest examination was dictated on a separate report. IMPRESSION: No gross contrast extravasation from the distal esophagus. Chest CT 05/12/24 16:10 IMPRESSION: No evidence of gross contrast extravasation from the esophagus. Laboratory Results WBC 7.10 10^3/uL (3.29-11.43) 05/14/24 04:17 RBC 4.23 10^6/uL (3.85-5.65) 05/14/24 04:17 Hgb 13.70 g/dL (11.27-16.99) 05/14/24 04:17 Hct 39.6 % (37-53) 05/14/24 04:17 MCV 93.6 fl (82-101) 05/14/24 04:17 MCH 32.4 pg (27-33) 05/14/24 04:17 MCHC 34.6 g/dL (30-55) 05/14/24 04:17 RDW 11.9 % (12.1-15.1) L 05/14/24 04:17 Plt Count 234 10^3/cmm (157-399) 05/14/24 04:17 MPV 9.4 fL (7.4-10.4) 05/14/24 04:17 Neut % (Auto) 58.6 % 05/14/24 04:17 Lymph % (Auto) 31.1 % 05/14/24 04:17 [place] % (Auto) 8.0 % 05/14/24 04:17 Eos % (Auto) 1.3 % 05/14/24 04:17 Baso % (Auto) 0.7 % 05/14/24 04:17 Neut # (Auto) 4.16 10^3/uL (1.8-7.7) 05/14/24 04:17 Lymph # (Auto) 2.2 10^3/uL (0.8-4.8) 05/14/24 04:17 [place] # (Auto) 0.6 10^3/uL (0.2-0.9) 05/14/24 04:17 Eos # (Auto) 0.1 10^3/uL (0.0-0.8) 05/14/24 04:17 Baso # (Auto) 0.1 10^3/uL (0.0-0.1) 05/14/24 04:17 Nucleated RBC % (auto) 0 % 05/14/24 04:17 Nucleated RBCs # 0.0 /100WBC 05/14/24 04:17 D-Dimer 1.08 ug/mLFEU (0-0.59) H 05/12/24 15:47 Specimen Type Arterial 05/12/24 12:06 Sample Site Radial, right 05/12/24 12:06 ABG pH 7.38 (7.35-7.45) 05/12/24 12:06 ABG pCO2 19.1 mmHg (35-45) L* 05/12/24 12:06 ABG pO2 118.0 mmHg (80.0-100.0) H 05/12/24 12:06 ABG PO2/FiO2 Ratio 561 05/12/24 12:06 ABG HCO3 11.3 mmol/L (22-26) L 05/12/24 12:06 ABG Base Excess -10.8 mmol/L (-2.0-2.0) L 05/12/24 12:06 [place] Test Pos 05/12/24 12:06 Hematocrit 50.1 % (42-52) 05/12/24 12:06 Hgb O2 Saturation 97.9 % (95-100) 05/12/24 12:06 Carboxyhemoglobin 1.1 %THgb (0.4-20.1) 05/12/24 12:06 Methemoglobin 0.3 % (0.4-1.5) L 05/12/24 12:06 Total Hemoglobin 16.4 g/dL (14-18) 05/12/24 12:06 O2 Delivery Device Room air 05/12/24 12:06 FiO2 21.0 % 05/12/24 12:06 Professional Architect ID Muna 05/12/24 12:06 Sodium 144 mmol/L (136-145) 05/14/24 04:17 Potassium 4.8 mmol/L (3.5-5.1) 05/14/24 04:17 Chloride 109 mmol/L (98-107) H 05/14/24 04:17 Carbon Dioxide 26 mmol/L (22-29) 05/14/24 04:17 Anion Gap 13.8 (5-19) 05/14/24 04:17 BUN 5 mg/dL (6-20) L 05/14/24 04:17 Creatinine 0.7 mg/dL (0.7-1.2) 05/14/24 04:17 GFR Calculation 127.6 mL/min (90-130) 05/14/24 04:17 Glucose 52 mg/dL (65-115) L 05/14/24 04:17 POC Glucose 349 mg/dL (70-110) H 05/15/24 09:09 Estimat Average Glucose 194 05/12/24 15:47 Hemoglobin A1c 8.4 % (4.0-6.0) H 05/12/24 15:47 Calculated Osmolality 293 mOsm/kg (285-295) 05/14/24 04:17 Lactic Acid 1.3 mmol/L (0.5-2.2) 05/12/24 15:47 Calcium 9.2 mg/dL (8.5-10.5) 05/14/24 04:17 Phosphorus 2.0 mg/dL (2.5-4.5) L 05/13/24 02:05 Magnesium 1.7 mg/dL (1.7-2.3) 05/12/24 12:27 Total Bilirubin 0.5 mg/dL (0.15-1.2) 05/13/24 02:05 AST 13 U/L (0-40) 05/13/24 02:05 ALT 17 U/L (0-41) 05/13/24 02:05 Alkaline Phosphatase 70 U/L (40-130) 05/13/24 02:05 Troponin T Baseline 10 ng/L (0-15) 05/12/24 15:47 Troponin T 120 Minute 9.66 ng/L (0-15) 05/12/24 17:57 Delta Troponin T -0.34 ABS# (0-10) L 05/12/24 17:57 Troponin T Hi Sens 6Hr 11.36 ng/L (0-15) 05/12/24 21:53 Troponin T Hi Sens 6Hr Delta 1.36 ng/L (0-12) 05/12/24 21:53 Total Protein 5.9 g/dL (6.6-8.7) L D 05/13/24 02:05 Albumin 3.6 g/dL (3.5-5.2) 05/13/24 02:05 Globulin 2.3 g/dL (1.3-4.6) 05/13/24 02:05 Lipase 29 U/L (13-60) 05/12/24 12:27 Urine Color Yellow (Yellow) 05/12/24 12:57 Urine Appearance Clear (CLEAR) 05/12/24 12:57 Urine pH 5.5 (5-7) 05/12/24 12:57 Ur Specific [place] 1.032 (1.005-1.030) H 05/12/24 12:57 Urine Protein 1+ (Negative) A 05/12/24 12:57 Urine Glucose (UA) 3+ (Normal) H 05/12/24 12:57 Urine Ketones 4+ (Negative) 05/12/24 12:57 Urine Blood Negative (Negative) 05/12/24 12:57 Urine Nitrate Negative (Negative) 05/12/24 12:57 Urine Bilirubin Negative (Negative) 05/12/24 12:57 Urine Urobilinogen 0.2 mg/dL (Negative) 05/12/24 12:57 Ur Leukocyte Esterase Negative (Negative) 05/12/24 12:57 Urine RBC 0-2 /hpf (0-2) 05/12/24 12:57 Urine WBC 0-5 /hpf (0-5) 05/12/24 12:57 Ur Squamous Epith Cells 0-5 /hpf (0-5) 05/12/24 12:57 Amorphous Sediment Not Reportable 05/12/24 12:57 Urine Bacteria None seen /hpf (NONE) 05/12/24 12:57 Hyaline Casts 2.87 /lpf 05/12/24 12:57 Gastric Occult Blood Positive (Negative) H 05/12/24 12:21 Serum Ketones Negative (Negative) 05/12/24 12:27 Vitals Last Vital Signs Temp 98.2 F 05/15/24 07:37 Pulse 78 05/15/24 07:37 Resp 20 H 05/15/24 07:37 BP 115/77 05/15/24 07:37 Pulse Ox 98 05/15/24 07:37 O2 Del Method Room Air 05/15/24 07:37 Discharge Plan Discharge Patient Disposition: Home Condition: Stable Prescriptions: New insulin glargine [Lantus U-100 Insulin] 100 unit/mL Solution 20 unit SUBCUT DAILY 7 Days Qty: 140 0RF polyethylene glycol 3350 17 gram Powder In Packet 17 g PO DAILY 5 Days Qty: 5 0RF pantoprazole 40 mg Recon Soln 40 mg IVP Q12H 5 Days Qty: 10 0RF alum-mag hydroxide-simeth [Mag-Al Plus] 200-200-20 mg/5 mL Suspension 10 ml PO Q8H 7 Days Qty: 210 0RF Discontinued insulin aspart U-100 [Novolog FlexPen U-100 Insulin] 100 unit/mL (3 mL) insulin pen 10 unit SUBCUT TID MDD 30 60 Days Qty: 30 0RF insulin glargine 100 unit/mL (3 mL) Insulin Pen 30 unit SUBCUT BID No Action (DME) True Metrix Glucose Test Strip Strip See Rx Instructions .Route Rx Instructions: As directed (DME) Dexcom G6 Pen And Pencil Repairer Misc See Rx Instructions .Route Qty: 1 0RF Rx Instructions: As directed (DME) pen needle, diabetic [TechLITE Pen Needle] 31 gauge x 5/16 needle See Rx Instructions .ROUTE .MEDSUPPLY Qty: 1200 Rx Instructions: As directed (DME) pen needle, diabetic [TechLITE Pen Needle] 32 gauge x 5/32 needle See Rx Instructions .ROUTE .COMPLEX Qty: 100 3RF Dose Instruction: USE DIRECTED Rx Instructions: USE DIRECTED (DME) Dexcom G6 Transmitter Device See Rx Instructions .Route Qty: 1 1RF Rx Instructions: As directed (DME) Dexcom G6 Sensor Device See Rx Instructions .ROUTE .COMPLEX Qty: 9 0RF Dose Instruction: USE DIRECTED Rx Instructions: USE DIRECTED Discharge Orders: Discharge Order (Routine); Ordered 05/15/24 Ordered By: Tamy Prasad Referrals: Morris Bentley FNP [Primary Care Provider] - Discharge Diet: Cardiac Discharge Activity: Increase activity as tolerated Patient Instructions: Opioid Safety Discharge Attestations Time Spent in Discharge Care*: less than 30 min Quality Metrics Clinical Quality Measures [ No reported AMI, CVA or VTE this stay] Coding Level of Care Code Acute Code for Chg Fwd Diagnoses Hyperlipemia, mixed E78.2 Type 1 diabetes mellitus E10.9 Vomiting R11.10 Dehydration E86.0 DKA (diabetic ketoacidosis) E11.10 Time Spent (min) 15
--- NOTE | 2024-05-15 11:54 | P.DS_ITS ---
Discharge Providers Date of Admission: 05/13/24 15:47 Date of Discharge: May 15, 2024 Attending Provider at Admission: Dasha Ramirez MD Attending Provider at Discharge: Tamy Prasad MD Primary Care Provider: ARCHIE Muniz Diagnoses at Discharge Discharge Diagnosis (1) Hyperlipemia, mixed: Status: Acute (2) Type 1 diabetes mellitus: Status: Acute (3) Vomiting: Status: Acute (4) Dehydration: Status: Acute (5) DKA (diabetic ketoacidosis): Status: Acute Reason for Visit Reason for Visit: HIGH SUGAR Hospital Course Hospital Course #Early DKA #Upper GI bleed #Hematemesis, possibility of Dorcas-Ulloa tear #Type 1 diabetes -Patient did receive 2 L normal saline bolus. Will order an additional normal saline bolus at this time and placed on IV fluids ? Order DKA protocol ? Anion gap is 28. I will place patient on insulin drip. Ketones are negative. ? Consult general surgery for possible EGD. There is possibility of Dorcas- Ulloa tear and irritation from retching and vomiting however will need to confirm ? Hemoglobin is stable at this time but patient is quite hemoconcentrated secondary to severe dehydration secondary to nausea vomiting for the last 3 days. ? WBC count 11.44 most likely reactive to stress. Low likelihood of infection at this time ? Will check troponins x 3 and baseline EKG. ? Placed on IV Protonix 40 twice daily ? Once gap closes we will bridge to Lantus. ? N.p.o. ? Will check CT chest abdomen pelvis Full code DVT prophylaxis: SCDs. 05/13/24 Labs reviewed and are acceptable DKA resolved with anion gap of 14. Blood sugars noted. Acceptable. Continue Lantus 27 units every 12 hours and insulin lispro correction scale Had hematemesis and plan was for upper GI endoscopy today but patient refused. Since no more episodes of vomiting will continue to monitor CBC for now. Continue Protonix 40 mg IV every 12 hours. Patient stable to be transferred to [facility] for further care. 05/14/24 Labs reviewed and are acceptable Abdominal pain likely secondary to gastritis. Will do p.o. Maalox, MiraLAX and senna for constipation Continue to monitor Anticipating discharge in a.m. 05/15/24 He is doing well, feeling well, denies any complaint of abdominal pain. Will discharge him home today and follow-up with PCP in 1 to 2 weeks. Discharge Data Studies Completed and Pending Completed Studies During Hospitalization Category Date Time Status CT chest abdomen pelvis [CT chest abdpel w/*[id number] Cat Scan 05/12/24 15:21 Completed ] Urgent CT chest wo con [id number] Stat Cat Scan 05/12/24 16:10 Completed Radiology Impressions Chest/Abdomen/Pelvis CT 05/12/24 15:21 IMPRESSION: The CT chest examination was dictated on a separate report. IMPRESSION: No gross contrast extravasation from the distal esophagus. Chest CT 05/12/24 16:10 IMPRESSION: No evidence of gross contrast extravasation from the esophagus. Laboratory Results WBC 7.10 10^3/uL (3.29-11.43) 05/14/24 04:17 RBC 4.23 10^6/uL (3.85-5.65) 05/14/24 04:17 Hgb 13.70 g/dL (11.27-16.99) 05/14/24 04:17 Hct 39.6 % (37-53) 05/14/24 04:17 MCV 93.6 fl (82-101) 05/14/24 04:17 MCH 32.4 pg (27-33) 05/14/24 04:17 MCHC 34.6 g/dL (30-55) 05/14/24 04:17 RDW 11.9 % (12.1-15.1) L 05/14/24 04:17 Plt Count 234 10^3/cmm (157-399) 05/14/24 04:17 MPV 9.4 fL (7.4-10.4) 05/14/24 04:17 Neut % (Auto) 58.6 % 05/14/24 04:17 Lymph % (Auto) 31.1 % 05/14/24 04:17 [place] % (Auto) 8.0 % 05/14/24 04:17 Eos % (Auto) 1.3 % 05/14/24 04:17 Baso % (Auto) 0.7 % 05/14/24 04:17 Neut # (Auto) 4.16 10^3/uL (1.8-7.7) 05/14/24 04:17 Lymph # (Auto) 2.2 10^3/uL (0.8-4.8) 05/14/24 04:17 [place] # (Auto) 0.6 10^3/uL (0.2-0.9) 05/14/24 04:17 Eos # (Auto) 0.1 10^3/uL (0.0-0.8) 05/14/24 04:17 Baso # (Auto) 0.1 10^3/uL (0.0-0.1) 05/14/24 04:17 Nucleated RBC % (auto) 0 % 05/14/24 04:17 Nucleated RBCs # 0.0 /100WBC 05/14/24 04:17 D-Dimer 1.08 ug/mLFEU (0-0.59) H 05/12/24 15:47 Specimen Type Arterial 05/12/24 12:06 Sample Site Radial, right 05/12/24 12:06 ABG pH 7.38 (7.35-7.45) 05/12/24 12:06 ABG pCO2 19.1 mmHg (35-45) L* 05/12/24 12:06 ABG pO2 118.0 mmHg (80.0-100.0) H 05/12/24 12:06 ABG PO2/FiO2 Ratio 561 05/12/24 12:06 ABG HCO3 11.3 mmol/L (22-26) L 05/12/24 12:06 ABG Base Excess -10.8 mmol/L (-2.0-2.0) L 05/12/24 12:06 Cali[place]o Test Pos 05/12/24 12:06 Hematocrit 50.1 % (42-52) 05/12/24 12:06 Hgb O2 Saturation 97.9 % (95-100) 05/12/24 12:06 Carboxyhemoglobin 1.1 %THgb (0.4-20.1) 05/12/24 12:06 Methemoglobin 0.3 % (0.4-1.5) L 05/12/24 12:06 Total Hemoglobin 16.4 g/dL (14-18) 05/12/24 12:06 O2 Delivery Device Room air 05/12/24 12:06 FiO2 21.0 % 05/12/24 12:06 Processing Archivist ID Monro 05/12/24 12:06 Sodium 144 mmol/L (136-145) 05/14/24 04:17 Potassium 4.8 mmol/L (3.5-5.1) 05/14/24 04:17 Chloride 109 mmol/L (98-107) H 05/14/24 04:17 Carbon Dioxide 26 mmol/L (22-29) 05/14/24 04:17 Anion Gap 13.8 (5-19) 05/14/24 04:17 BUN 5 mg/dL (6-20) L 05/14/24 04:17 Creatinine 0.7 mg/dL (0.7-1.2) 05/14/24 04:17 GFR Calculation 127.6 mL/min (90-130) 05/14/24 04:17 Glucose 52 mg/dL (65-115) L 05/14/24 04:17 POC Glucose 349 mg/dL (70-110) H 05/15/24 09:09 Estimat Average Glucose 194 05/12/24 15:47 Hemoglobin A1c 8.4 % (4.0-6.0) H 05/12/24 15:47 Calculated Osmolality 293 mOsm/kg (285-295) 05/14/24 04:17 Lactic Acid 1.3 mmol/L (0.5-2.2) 05/12/24 15:47 Calcium 9.2 mg/dL (8.5-10.5) 05/14/24 04:17 Phosphorus 2.0 mg/dL (2.5-4.5) L 05/13/24 02:05 Magnesium 1.7 mg/dL (1.7-2.3) 05/12/24 12:27 Total Bilirubin 0.5 mg/dL (0.15-1.2) 05/13/24 02:05 AST 13 U/L (0-40) 05/13/24 02:05 ALT 17 U/L (0-41) 05/13/24 02:05 Alkaline Phosphatase 70 U/L (40-130) 05/13/24 02:05 Troponin T Baseline 10 ng/L (0-15) 05/12/24 15:47 Troponin T 120 Minute 9.66 ng/L (0-15) 05/12/24 17:57 Delta Troponin T -0.34 ABS# (0-10) L 05/12/24 17:57 Troponin T Hi Sens 6Hr 11.36 ng/L (0-15) 05/12/24 21:53 Troponin T Hi Sens 6Hr Delta 1.36 ng/L (0-12) 05/12/24 21:53 Total Protein 5.9 g/dL (6.6-8.7) L D 05/13/24 02:05 Albumin 3.6 g/dL (3.5-5.2) 05/13/24 02:05 Globulin 2.3 g/dL (1.3-4.6) 05/13/24 02:05 Lipase 29 U/L (13-60) 05/12/24 12:27 Urine Color Yellow (Yellow) 05/12/24 12:57 Urine Appearance Clear (CLEAR) 05/12/24 12:57 Urine pH 5.5 (5-7) 05/12/24 12:57 Ur Specific [place] 1.032 (1.005-1.030) H 05/12/24 12:57 Urine Protein 1+ (Negative) A 05/12/24 12:57 Urine Glucose (UA) 3+ (Normal) H 05/12/24 12:57 Urine Ketones 4+ (Negative) 05/12/24 12:57 Urine Blood Negative (Negative) 05/12/24 12:57 Urine Nitrate Negative (Negative) 05/12/24 12:57 Urine Bilirubin Negative (Negative) 05/12/24 12:57 Urine Urobilinogen 0.2 mg/dL (Negative) 05/12/24 12:57 Ur Leukocyte Esterase Negative (Negative) 05/12/24 12:57 Urine RBC 0-2 /hpf (0-2) 05/12/24 12:57 Urine WBC 0-5 /hpf (0-5) 05/12/24 12:57 Ur Squamous Epith Cells 0-5 /hpf (0-5) 05/12/24 12:57 Amorphous Sediment Not Reportable 05/12/24 12:57 Urine Bacteria None seen /hpf (NONE) 05/12/24 12:57 Hyaline Casts 2.87 /lpf 05/12/24 12:57 Gastric Occult Blood Positive (Negative) H 05/12/24 12:21 Serum Ketones Negative (Negative) 05/12/24 12:27 Vitals Last Vital Signs Temp 98.2 F 05/15/24 07:37 Pulse 78 05/15/24 07:37 Resp 20 H 05/15/24 07:37 BP 115/77 05/15/24 07:37 Pulse Ox 98 05/15/24 07:37 O2 Del Method Room Air 05/15/24 07:37 Discharge Plan Discharge Patient Disposition: Home Condition: Stable Prescriptions: New insulin glargine [Lantus U-100 Insulin] 100 unit/mL Solution 20 unit SUBCUT DAILY 7 Days Qty: 140 0RF polyethylene glycol 3350 17 gram Powder In Packet 17 g PO DAILY 5 Days Qty: 5 0RF alum-mag hydroxide-simeth [Mag-Al Plus] 200-200-20 mg/5 mL Suspension 10 ml PO Q8H 7 Days Qty: 210 0RF pantoprazole 40 mg tablet,delayed release (DR/EC) 40 mg PO DAILY Qty: 10 0RF Discontinued insulin aspart U-100 [Novolog FlexPen U-100 Insulin] 100 unit/mL (3 mL) insulin pen 10 unit SUBCUT TID MDD 30 60 Days Qty: 30 0RF insulin glargine 100 unit/mL (3 mL) Insulin Pen 30 unit SUBCUT BID No Action (DME) True Metrix Glucose Test Strip Strip See Rx Instructions .Route Rx Instructions: As directed (DME) Dexcom G6 Product Support Sales Representative Misc See Rx Instructions .Route Qty: 1 0RF Rx Instructions: As directed (DME) pen needle, diabetic [TechLITE Pen Needle] 31 gauge x 5/16 needle See Rx Instructions .ROUTE .MEDSUPPLY Qty: 1200 Rx Instructions: As directed (DME) pen needle, diabetic [TechLITE Pen Needle] 32 gauge x 5/32 needle See Rx Instructions .ROUTE .COMPLEX Qty: 100 3RF Dose Instruction: USE DIRECTED Rx Instructions: USE DIRECTED (DME) Dexcom G6 Transmitter Device See Rx Instructions .Route Qty: 1 1RF Rx Instructions: As directed (DME) Dexcom G6 Sensor Device See Rx Instructions .ROUTE .COMPLEX Qty: 9 0RF Dose Instruction: USE DIRECTED Rx Instructions: USE DIRECTED Discharge Orders: Discharge Order (Routine); Ordered 05/15/24 Ordered By: Tamy Prasad Referrals: Morris Bentley, [facility] [Primary Care Provider] - Discharge Diet: Cardiac Discharge Activity: Increase activity as tolerated Patient Instructions: Opioid Safety Discharge Attestations Time Spent in Discharge Care*: less than 30 min Quality Metrics Clinical Quality Measures [ No reported AMI, CVA or VTE this stay] Coding Level of Care Code Acute Code for Chg Fwd Diagnoses Hyperlipemia, mixed E78.2 Type 1 diabetes mellitus E10.9 Vomiting R11.10 Dehydration E86.0 DKA (diabetic ketoacidosis) E11.10
--- NOTE | 2024-05-15 12:11 | PC.NURSE ---
pt refused discharge vital signs he was upset that he has not been discharge on time when he suppose to be per doctor conversation this morning with him. Note: message the doctor via voalte around 11 am and talked on the phone twice to follow up his discharge orders. However, doctor finalized the discharge meds which sent sent to [facility] and they are close at noon. Family at bedside stated it is okay for me to call it in [facility] in [place].
--- NOTE | 2024-05-15 12:25 | PC.NURSE ---
called [facility] in [place] for pt's protonix and maalox per family.
== END 2024-05-15 12:19 | disposition home or self-care (01) | DRG 391 ==
LOC: ER 13:45 → ICU 13:50 → CSU 05-13 15:45
PROVIDERS: Admitting Provider Internal Medicine; Emergency Provider Emergency Medicine; PCP Nurse Practitioner; Visit Provider Internal Medicine
DX: K29.70 Gastritis, unspecified, without bleeding (principal); E10.10 Type 1 diabetes mellitus with ketoacidosis without coma; K92.0 Hematemesis; E78.2 Mixed hyperlipidemia; E86.0 Dehydration
CPT/HCPCS: 36415; 36416; 36600; 71250; 71260; 74177; 80048; 80053; 81001; 82009; 82271; 82805; 82962; 83036; 83605; 83690; 83735; 84100; 84484; 85025; 85378; 93005; 96372; 96376; G0378; J1200; J1650; J1815; J2270; J2405; J2470; J2765; J7030; Q9967

== ENCOUNTER 2024-06-02 11:45 | Day surgery (SDC) | payer BC, MEDICAID, SELFPAY ==
[2024-06-02 12:44] VITALS: BP 118/81; PULSE 80; RESP 18; TEMP 36.6; O2SAT 99; BMI 25.6
[2024-06-02] MEDS: sodium chloride 0.9% 500 ML 15 ML IV (12:53)
[2024-06-02 12:57] LABS: Glucose Point of Care 125 mg/dL (70-110)
--- NOTE | 2024-06-02 14:13 | ANES.PREANE2 ---
Pre-Anesthetic Assessment Height/Weight: Height 5 ft 5 in Weight 154 lb Temp Pulse Resp BP Pulse Ox O2 Del Method 97.9 F 80 18 118/81 99 Room Air 06/02/24 12:44 06/02/24 12:44 06/02/24 12:44 06/02/24 12:44 06/02/24 12:44 06/02/24 12:44 Preop Diagnosis: Hematic emesis Operation Date: 06/02/24 13:00 Proposed Procedures p EGD 24908, R14.2(Not Applicable) - Kenneth Dinh, DO Was Beta Lexii taken within 24 hours: N/A Was Clonidine taken within 24 hours: N/A Last intake: Intake Last Liquid Date 06/02/24 Last Liquid Time 03:00 Last Solid Date 06/01/24 Last Solid Time 20:00 Social Tobacco and No alcohol Exam alert, oriented x 3, clear to auscultation bilaterally and regular rate & rhythm Airway Submandibular: within normal limits Cervical ROM: within normal limits Mallampati: Class II Dentition: full Comments: Comments: Poor dentition, denies any loose Anesthetic Plan ASA status: 2 Anesthesia: MAC Other: Patient was experiencing hematic emesis 2 weeks ago found to be in DKA No prior issues with anesthesia NPO since yesterday Type I diabetic, BS 125 EKG sinus rhythm Current smoker METs greater than 4 Plan for MAC anesthetic Medications/Allergies Home Medications Medication Instructions Recorded Confirmed Last Taken Type blood sugar diagnostic (True 05/09/22 05/24/24 Unknown History Metrix Glucose Test Strip) blood-glucose meter,continuous #1 ea 05/23/22 05/24/24 Unknown Rx (Dexcom G6 Typists Supervisor) pen needle, diabetic 31 gauge x #1,200 ea 07/01/23 05/24/24 Unknown History 5/16 (TechLITE Pen Needle) pen needle, diabetic 32 gauge x #100 ea 01/05/24 05/24/24 Unknown Rx 5/32 (TechLITE Pen Needle) blood-glucose transmitter (Dexcom #1 ea 03/15/24 05/24/24 Unknown Rx G6 Transmitter device) blood-glucose sensor (Dexcom G6 #9 ea 05/03/24 05/24/24 Unknown Rx Sensor device) pantoprazole 40 mg tablet,delayed 40 mg PO DAILY #10 tabs 05/15/24 06/01/24 06/01/24 Rx release insulin detemir U-100 100 unit/mL 20 unit SUBCUT BID 05/24/24 06/01/24 06/01/24 History (3 mL) subcutaneous pen insulin aspart U-100 100 unit/mL See Rx Instructions .Route .COMPLEX 06/01/24 06/01/24 06/01/24 History (3 mL) subcutaneous pen Allergies Allergy/AdvReac Type Severity Reaction Status Date / Time No Known Allergies Allergy Verified 05/24/24 14:14 Current Medications Generic Name Dose Route Start Last Admin Trade Name Freq PRN Reason Stop Dose Admin Sodium Chloride 500 mls @ 15 mls/hr 06/02/24 12:22 06/02/24 12:53 Sodium Chloride 0.9% IV 06/03/24 12:21 15 mls/hr .Q24H PRN Administration COLONOSCOPY FLUIDS PFSH Anesthesia Medical History Hyperlipemia, 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
--- NOTE | 2024-06-02 14:21 | W.PM.OPSUD ---
Surgery/Procedure H&P Update DATE OF PROCEDURE: June 02, 2024 DATE H&P PERFORMED: 05/24/24 H&P UPDATE INFORMATION: I have reviewed H&P completed within last 30 days, I have examined patient prior to procedure and No changes to prior documentation PREOP DIAGNOSIS: Hematic emesis PLANNED PROCEDURE: Operation Date: 06/02/24 13:00 Proposed Procedures p EGD [id number], R14.2(Not Applicable) - Kenneth Dinh DO
[2024-06-02] MEDS: EPINEPHrine 1 mg/mL INJ XX (14:34)
[2024-06-02 14:39] VITALS: BP 106/56; PULSE 78; RESP 20; TEMP 36.5; O2SAT 94
[2024-06-02 14:55] VITALS: BP 110/67; PULSE 87; RESP 18; O2SAT 99
--- NOTE | 2024-06-02 15:09 | ANE.PACU2 ---
Inpatient post-anesthesia follow up: Airway intact: Yes Vital signs: Temperature 97.7 F Pulse Rate 87 Respiratory Rate 18 Blood Pressure 110/67 Pulse Oximetry 99 Oxygen Delivery Me thod Room Air Oxygen Flow Rate 3 Fraction of Inspir ed Oxygen Hydration adequate: Yes Nausea and vomiting: No Pain level: 1 Mental status: Baseline
== END 2024-06-02 15:09 | disposition home or self-care (01) ==
PROVIDERS: PCP Nurse Practitioner; Visit Provider Surgery
PROC: 0DJ08ZZ Inspection of Upper Intestinal Tract, Via Natural or Artificial Opening Endoscopic (ICD-10-PCS; CPT 43235; principal; 2024-06-02 13:00)
DX: R14.2 Eructation (principal); Q27.30 Arteriovenous malformation, site unspecified; E10.9 Type 1 diabetes mellitus without complications; Z79.4 Long term (current) use of insulin; E78.2 Mixed hyperlipidemia; F17.210 Nicotine dependence, cigarettes, uncomplicated
CPT/HCPCS: 36416; 43239; 82962; 88305; J0171; J2704; J7040

== ENCOUNTER → 2025-06-10 09:27 | Outpatient (BNVA) | payer BC, MEDICAID, SELFPAY | PROVIDERS: PCP Nurse Practitioner; Visit Provider Physician Assistant | DX: M65.311 Trigger thumb, right thumb (principal); M65.312 Trigger thumb, left thumb | CPT/HCPCS: 73130 ==